=== PATIENT | female | born 1985 | race American Indian/Alaskan Native ===

== ENCOUNTER 2017-06-16 17:58 | Emergency (ER) | payer SELFPAY ==
--- NOTE | 2017-06-16 18:26 | Emergency Department Report ---
Stated Complaint: 7.5 WKS PREG, SPOTTING, HEADACHE, CRAMPING, CP Time Seen by Provider: 06/16/17 18:23 - HPI History of Present Illness: PT states she is 7.5 weeks . PT states she is cramping and spotting, started last night. PT has not been to [facility] for this - ROS Review of Systems: +nausea - vomiting + spotting - Exam Physical Exam: PT looks well, non toxic abd soft R pelvic ttp MSE screening note: Focused history and physical exam performed. Due to findings the following was ordered: labs, us ED Disposition for MSE Condition: Stable
[2017-06-16 18:56] LABS: Basophils % (Auto) 0.5 % (0.0-1.8); Eosinophils % (Auto) 0.9 % (0.0-4.3); Hematocrit 36.2 % (30.3-42.9); Hemoglobin 12.2 gm/dl (10.1-14.3); Mean Corpuscular HGB Conc 34 % (30-34); Mean Corpuscular Hemoglobin 31 pg (28-32); Mean Corpuscular Volume 91 fl (79-97); Platelet Count 241 K/mm3 (140-440); Red Blood Count 3.98 M/mm3 (3.65-5.03); Red Cell Distribution Width 12.7 % (13.2-15.2)
[2017-06-16 19:27] LABS: Alanine Aminotransferase 13 units/L (7-56); Albumin 4.2 g/dL (3.9-5); Albumin/Globulin Ratio 1.7 %; Alkaline Phosphatase 41 units/L (35-129); Anion Gap 17 mmol/L; Blood Urea Nitrogen 5 mg/dL (7-17); Carbon Dioxide 25 mmol/L (22-30); Chloride 99.6 mmol/L (98-107); Glucose 75 mg/dL (65-100); Potassium 4.5 mmol/L (3.6-5.0); Sodium 137 mmol/L (137-145); Total Protein 6.7 g/dL (6.3-8.2)
--- NOTE | 2017-06-16 22:11 | Ultrasound Report ---
FINAL REPORT PROCEDURE: US OB \T\lt; = 14 WEEKS FETUS TECHNIQUE: Real-time transabdominal sonography of the uterus, placenta, amniotic fluid, adnexa, and fetus was performed with image documentation. Measurements were obtained to determine age/size. M-mode Doppler was used to document heartbeat. CPT 02438 HISTORY: , pain and bleeding COMPARISON: No prior studies are available for comparison. FINDINGS: CRL: 17.6 mm, which corresponds to a gestational age of: 8 weeks, 2 days. Yolk Sac: Normal. Embryonic Cardiac Activity: 166 beats per minute Gestational Sac: Normal. Amniotic fluid: Normal. Cervix: Normal. Right Ovary: 3.7 x 3.0 x 3.2 centimeters Left Ovary: 3.3 x 2.3 by 4.2 centimeters Estimated delivery date: Normal. Uterus and adnexa: 01/24/2018 IMPRESSION: Single live intrauterine gestation at approximately 8 weeks and 2 days. EDC by US 01/24/2018
--- NOTE | 2017-06-16 22:12 | Ultrasound Report ---
FINAL REPORT PROCEDURE: US OB TRANSVAGINAL TECHNIQUE: Real-time transvaginal sonography of the uterus, placenta, amniotic fluid, adnexa, and fetus was performed with image documentation. Measurements were obtained to determine age/size. M-mode Doppler was used to document heartbeat. CPT 31119 HISTORY: , pain and bleeding COMPARISON: No prior studies are available for comparison. FINDINGS: CRL: 17.6 mm, which corresponds to a gestational age of: 8 weeks, 2 days. Yolk Sac: Normal. Embryonic Cardiac Activity: 166 beats per minute Gestational Sac: Normal. Amniotic fluid: Normal. Cervix: Normal. Right Ovary: 3.7 x 3.0 x 3.2 centimeters Left Ovary: 3.3 x 2.3 by 4.2 centimeters Estimated delivery date: 01/24/2018. Uterus and adnexa: Normal IMPRESSION: 1. Single living intrauterine gestation at approximately 8 weeks and 2 days 2. EDC by US 01/24/2018.
[2017-06-17 01:06] VITALS: BP 124/77
== END 2017-06-17 01:39 | disposition left against medical advice (07) ==
LOC: ED 17:58
DX: O20.9 Hemorrhage in early pregnancy, unspecified (principal); Z3A.01 Less than 8 weeks gestation of pregnancy; Z53.21 Procedure and treatment not carried out due to patient leaving prior to being seen by health care provider
CPT/HCPCS: 36415; 76801; 76817; 80053; 84702; 85025; 86900; 86901

== ENCOUNTER 2017-11-25 05:23 | Inpatient (IN) | payer MEDICAID ==
[2017-11-25] MEDS ORDERED: LACTATED RINGERS 500 ML IV ONE (05:28)
[2017-11-25] MEDS ORDERED: LACTATED RINGERS 1,000 ML IV ONE (06:07)
[2017-11-25 06:26] LABS: Bilirubin,Urine NEG (Negative); Blood,Urine NEG (Negative); Color,Urine Straw (Yellow); Mucus,Urine FEW /HPF; Protein,Urine <15 mg/dL mg/dL (Negative); RBC,Urine < 1.0 /HPF (0.0-6.0); Urobilinogen,Urine < 2.0 mg/dL (<2.0)
[2017-11-25] MEDS ORDERED: MAGNESIUM SULFATE 4GM/100ML 4 GM/100 ML BAG IV NR (07:30)
[2017-11-25 07:44] LABS: Hematocrit 37.6 % (30.3-42.9); Hemoglobin 12.7 gm/dl (10.1-14.3); Mean Corpuscular HGB Conc 34 % (30-34); Mean Corpuscular Hemoglobin 31 pg (28-32); Mean Corpuscular Volume 93 fl (79-97); Platelet Count 256 K/mm3 (140-440); Red Blood Count 4.07 M/mm3 (3.65-5.03); Red Cell Distribution Width 13.6 % (13.2-15.2)
[2017-11-25] MEDS ORDERED: MYLICON PO PRN (08:10)
[2017-11-25] MEDS ORDERED: ZOFRAN IV PRN (08:10)
--- NOTE | 2017-11-25 08:18 | History and Physical Report ---
History of Present Illness Date of examination: 11/25/17 Date of admission: 11/25/17 05:28 Chief complaint: Labor History of present illness: Pt is a 32 yo BF EDC 01/27/18; EGA 31 0/7 weeks presents to [facility] L&D complaining of RUC's q 3-4 mins. She received care at [facility] since 16 weeks and course has been unremarkable. records are available. Past History Past Medical History: no pertinent history Past Surgical History: no surgical history Family/Genetic History: hypertension Social history: no significant social history, single - Obstetrical History Expected Date of Delivery: 01/27/18 Actual Gestation: 31 Week(s) 0 Day(s) : 2 Medications and Allergies Allergies Allergy/AdvReac Type Severity Reaction Status Date / Time amoxicillin Allergy Hives Verified 11/25/17 07:53 Penicillins Allergy Hives Verified 11/25/17 07:52 Home Medications Medication Instructions Recorded Confirmed Last Taken Type No Known Home Medications [No 06/16/17 06/16/17 Unknown History Reported Home Medications] Active Meds: Active Medications Acetaminophen (Tylenol) 650 mg PO Q4H PRN PRN Reason: Pain MILD(1-3)/Fever >100.5/CROWELL Betamethasone Acet/Betameth SodPhos (Celestone Soluspan) 12 mg IM Q24HR LUTHER Stop: 11/26/17 10:01 Magnesium Sulfate (Magnesium Sulfate 4gm/100ml) 4 gm in 100 mls @ 300 mls/hr IV ONCE NR Stop: 11/25/17 10:00 Last Admin: 11/25/17 07:55 Dose: 300 mls/hr Magnesium Sulfate (Magnesium Sulfate 40gm/1000ml) 40 gm in 1,000 mls @ 25 mls/ hr IV DIRECT LUTHER Clindamycin HCl (Cleocin 900 Mg/50 Ml) 900 mg in 50 mls @ 100 mls/hr IV Q8HR LUTHER; Protocol - Vital Signs Vital signs: Vital Signs Temp Pulse BP 98.6 F 78 120/75 11/25/17 07:00 11/25/17 07:00 11/25/17 07:00 Temp Pulse Resp BP Pulse Ox 98.6 F 78 120/75 11/25/17 07:00 11/25/17 07:00 11/25/17 07:00 - Physical Exam Breasts: Positive: deferred Cardiovascular: Regular rate Lungs: Positive: Clear to auscultation Abdomen: Positive: normal appearance, soft Genitourinary (Female): Positive: normal external genitalia Uterus: Positive: enlarged Extremities: Positive: normal - Obstetrical FHR: category 1 Uterine Contraction Monitor Mode: External Cervical Dilatation: 3.5 (per nurse) Cervical Effacement Percentage: 80 (per nurse) station: -3 Uterine Contraction Pattern: Regular Uterine Tone Measurement Phase: Contraction Uterine Contraction Intensity: Moderate Results Result Diagrams: 11/25/17 07:00 Abnormal lab results 11/25/17 Range/Units 07:00 WBC 11.2 H (4.5-11.0) K/mm3 All other labs normal. Ultrasound: report reviewed Assessment and Plan - Patient Problems (1) 31 weeks gestation of Onset Date: 11/25/17 Current Visit: Yes Status: Acute Plan to address problem: A: IUP @ 31 0/7 weeks Labor P: Admit to L&D for IV hydration, IV tocolysis, Steroids and Antibiotics Ob u/s for growth, position, BALWINDER and EFW. Obtain an APA consultation (2) contractions Onset Date: 11/25/17 Current Visit: Yes Status: Acute (3) uterine contractions in third trimester, antepartum Onset Date: 11/25/17 Current Visit: Yes Status: Acute
[2017-11-25] MEDS: MAGNESIUM SULFATE 40GM/1000ML 40 GM/1,000 ML BAG IV SCH (08:46)
[2017-11-25] MEDS ORDERED: COLACE PO PRN (09:00)
[2017-11-25] MEDS ORDERED: SENOKOT S PO PRN (09:00)
[2017-11-25] MEDS: CLEOCIN 900 MG/50 mL 900 MG/50 ML BAG IV SCH ×2 (09:07→17:14)
[2017-11-25] MEDS: CELESTONE SOLUSPAN IM SCH (10:08)
[2017-11-25] MEDS: PRENATAL VITAMIN PO SCH (10:15)
--- NOTE | 2017-11-25 10:58 | Ultrasound Report ---
BIOPHYSICAL PROFILE: labor. 2 - breathing movements 2 - movements 2 - posture and tone 2 - Qualitative amniotic fluid volume 8 - TOTAL SCORE OF POSSIBLE 8 Heart Rate (bpm) 141 Estimated age 31 weeks zero days.
--- NOTE | 2017-11-25 11:10 | Ultrasound Report ---
COMPLETE OB ULTRASOUND: labor. Gestation: Mckenna Position: Cephalic BALWINDER = 13.7 cm Placenta: Anterior Placental Grade: 2 Heart Rate: 142 BPM Cervical length: 2.5 cm (Normal > 3 cm) NEUROANATOMY VISUALIZED: Cisterna Magnum Cerebellum Lateral Ventricle ANATOMY VISUALIZED: Stomach Kidneys Bladder Diaphragm 4 Chamber Heart Heart 3 Vessel Cord SPINE VISUALIZED: Longitudinal Transverse The following are not demonstrated due to maternal body habitus or lie: Choroid plexus, cord insertion, AP supine BPD: 7.8 cm = 31 w 2 d HC: 28.5 cm = 31 w 2 d AC: 27.4 cm = 31 w 2 d FL: 5.5 cm = 28 w 6 d HC/AC Ratio: 1.04 Cephalic Index: 81.2 Estimated Weight: 1608 grams Clinical age = 31 w 0 d EDC: 01/27/18 US Gest. Age = 30 w 5 d EDC: 01/29/18
--- NOTE | 2017-11-25 13:17 | Consultation ---
History of Present Illness Consult date: 11/25/17 Reason for consult: contractions History of present illness: Date of Consult: Saturday, November 25, 2017 Patient Name: CECI LOPEZ Date of : 89 Consulting Physician: Ashlyn Garcia M.D. Admitting Physicians: Dr. Ahmet Anton. Admission Diagnosis: Patient is a 32 year old Para 1001 who presents at 31 weeks with complaint of contractions since midnight last night. PAST OBSTETRICAL HISTORY: 2016: at term, BW:6 pounds 9 oz. labor s/p previous admission with betamethasone x 2 and magnesium administration. Patient describes contractions over the last 2 days. She denies vaginal bleeding or fluid leakage per vagina. SVE: 3 4 cm. Patient describes some improvement in symptoms from admission. Past History Past Medical History: no pertinent history Past Surgical History: no surgical history Family/Genetic History: hypertension - Obstetrical History : 2 Medications and Allergies Allergies Allergy/AdvReac Type Severity Reaction Status Date / Time amoxicillin Allergy Hives Verified 11/25/17 07:53 Penicillins Allergy Hives Verified 11/25/17 07:52 Home Medications Medication Instructions Recorded Confirmed Last Taken Type No Known Home Medications [No 06/16/17 06/16/17 Unknown History Reported Home Medications] Active Meds: Active Medications Acetaminophen (Tylenol) 650 mg PO Q4H PRN PRN Reason: Pain MILD(1-3)/Fever >100.5/CROWELL Betamethasone Acet/Betameth SodPhos (Celestone Soluspan) 12 mg IM Q24HR LUTHER Stop: 11/26/17 10:01 Last Admin: 11/25/17 10:08 Dose: 12 mg Docusate Sodium (Colace) 100 mg PO Q12H PRN PRN Reason: Constipation Magnesium Sulfate (Magnesium Sulfate 40gm/1000ml) 40 gm in 1,000 mls @ 25 mls/ hr IV DIRECT LUTHER Last Admin: 11/25/17 08:46 Dose: 1 gm/hr, 25 mls/hr Clindamycin HCl (Cleocin 900 Mg/50 Ml) 900 mg in 50 mls @ 100 mls/hr IV Q8H LUTHER ; Protocol Last Admin: 11/25/17 09:07 Dose: 100 mls/hr Lactated Ringer's (Lactated Ringers) 1,000 mls @ 125 mls/hr IV DIRECT LUTHER Magnesium Hydroxide (Milk Of Magnesia) 30 ml PO QHS PRN PRN Reason: Laxative Effect Multivitamins/Iron/Calcium ( Vitamin) 1 each PO QDAY LUTHER Last Admin: 11/25/17 10:15 Dose: 1 each Ondansetron HCl (Zofran) 4 mg IV Q6H PRN PRN Reason: Nausea And Vomiting Senna/Docusate Sodium (Senokot S) 2 tab PO Q12H PRN PRN Reason: Laxative Effect Simethicone (Mylicon) 80 mg PO Q6H PRN PRN Reason: Gas pain - Vital Signs Vital signs: Vital Signs Temp Pulse BP 98.6 F 78 120/75 11/25/17 07:00 11/25/17 07:00 11/25/17 07:00 Temp Pulse Resp BP Pulse Ox 98.6 F 78 120/75 11/25/17 07:00 11/25/17 07:00 11/25/17 07:00 Results Result Diagrams: 11/25/17 07:00 Abnormal lab results 11/25/17 Range/Units 07:00 WBC 11.2 H (4.5-11.0) K/mm3 All other labs normal. Assessment and Plan ASSESSMENT: IUP at 31 weeks. labor s/p previous admission with betamethasone x 2 and magnesium administration Rule out labor. FHR tracing category 1 Given the current findings, the likelihood for imminent premature delivery appears UNCLEAR . RECOMMENDATIONS: 1. I am in agreement with admission and the administration of corticosteroids to enhance lung maturity. 2. As always, a complete check for urinary and cervico-vaginal infection should be pursued during this admission. Accordingly we would obtain and follow-up the results of a wet prep for bacterial vaginosis and a urine culture to rule out subclinical UTI and asymptomatic bacteriuria. 3. As always, I would abandon all attempts of tocolysis in the presence of and SVE > 5cm, SROM, unexplained vaginal bleeding or a non- reassuring heart rate pattern. 4. If discharged, this patient will require intermittent sonographic cervical follow-up as dictated by symptoms or until 34 weeks gestation. 5. We will be happy to follow this patient with you. Thank you for allowing us to participate in the care of this patient. We look forward to the opportunity to assist in her continued management. If you have any questions, we may be reached at [phone]. Ashlyn Garcia M.D.
[2017-11-25] MEDS: TYLENOL PO PRN ×2 (14:58→20:24)
[2017-11-25] MEDS: LACTATED RINGERS 1,000 ML IV SCH (16:33)
[2017-11-25] MEDS ORDERED: MILK OF MAGNESIA PO PRN (22:00)
[2017-11-25] MEDS ORDERED: fentaNYL-BUPIV 2 MCG/ML-0.125% 200 MCG/100 ML BAG EPIDURAL SCH (23:45)
[2017-11-25] MEDS ORDERED: ePHEDrine SULFATE IV PRN (23:55)
[2017-11-25] MEDS ORDERED: NARCAN 2 MG/2 ML IV PRN (23:55)
[2017-11-26] MEDS: TYLENOL PO PRN (00:59)
[2017-11-26] MEDS: CLEOCIN 900 MG/50 mL 900 MG/50 ML BAG IV SCH ×2 (01:02→17:35)
[2017-11-26] MEDS: MAGNESIUM SULFATE 40GM/1000ML 40 GM/1,000 ML BAG IV SCH (04:17)
--- NOTE | 2017-11-26 08:34 | Progress Note ---
Assessment and Plan - Patient Problems (1) 31 weeks gestation of Onset Date: 11/25/17 Current Visit: Yes Status: Acute Plan to address problem: A: IUP @ 31 1/7 weeks Contractions - currently resolved P: Continue present management Appreciate APA consultation Will D/C Magnesium sulfate and start Procardia 10mg Q8 Anticipate discharge in 24hrs if remains stable (2) contractions Onset Date: 11/25/17 Current Visit: Yes Status: Acute (3) uterine contractions in third trimester, antepartum Onset Date: 11/25/17 Current Visit: Yes Status: Acute Subjective - Subjective Date of service: 11/26/17 Principal diagnosis: IUP @ 31 1/7 weeks; PTL Interval history: Pt is a 32 yo BF EDC 01/27/18; EGA 31 1/7 weeks presented to [facility] L&D complaining of RUC's q 3-4 mins. She received IV hydration, IV Magnesium sulfate and IM Steroids, and currently her contractions have stopped. Patient reports: movement normal, no new complaints, no loss of fluid, no vaginal bleeding, no contractions Objective - Vital Signs Vital Signs: Vital Signs - 12hr 11/26/17 02:00 Pulse Rate 80 Respiratory 12 Rate Blood Pressure 106/62 [Left] - Exam Breasts: deferred Cardiovascular: Regular rate Lungs: Clear to auscultation Abdomen: Present: normal appearance Uterus: Present: normal FHR: category 1 Uterine Contraction Monitor Mode: External Cervical Dilatation: 3 Cervical Effacement Percentage: 50 Uterine Contraction Pattern: Absent - Labs Labs: Abnormal Labs 11/25/17 07:00 WBC 11.2 H Laboratory Results - last 24 hr 11/25/17 07:00 RPR Nonreactive - Results US- obstetric: report reviewed (Mckenna, Cephalic, BALWINDER 13.7, EFW 1608gms, Cx length 2.5cm)
--- NOTE | 2017-11-26 09:07 | Consultation ---
History of Present Illness Reason for consult: other (Patient is a 32 year old Para 1001 who presents at 31 weeks with reported complaint of contractions upon admission. Patient reported NO contractions during consultation . Currently on MgSO4 2 gm /hr. S/ P BMZ for FLM . Patient denied VD, ABD pain , and regular ctx. Reported AFM) Past History Past Medical History: no pertinent history Past Surgical History: no surgical history Family/Genetic History: hypertension - Obstetrical History : 2 Medications and Allergies Allergies Allergy/AdvReac Type Severity Reaction Status Date / Time amoxicillin Allergy Hives Verified 11/25/17 07:53 Penicillins Allergy Hives Verified 11/25/17 07:52 Home Medications Medication Instructions Recorded Confirmed Last Taken Type Pnv,Calcium 72/Iron/Folic Acid 1 tab PO DAILY 11/25/17 11/25/17 11/23/17 09:00 History [ Plus Tablet] Active Meds: Active Medications Acetaminophen (Tylenol) 650 mg PO Q4H PRN PRN Reason: Pain MILD(1-3)/Fever >100.5/CROWELL Last Admin: 11/26/17 00:59 Dose: 650 mg Betamethasone Acet/Betameth SodPhos (Celestone Soluspan) 12 mg IM Q24HR LUTHER Stop: 11/26/17 10:01 Last Admin: 11/25/17 10:08 Dose: 12 mg Diphenhydramine HCl (Benadryl) 25 mg PO Q8H PRN PRN Reason: Itching Docusate Sodium (Colace) 100 mg PO Q12H PRN PRN Reason: Constipation Ephedrine Sulfate (Ephedrine Sulfate) 10 mg IV Q2M PRN PRN Reason: Hypotension Magnesium Sulfate (Magnesium Sulfate 40gm/1000ml) 40 gm in 1,000 mls @ 25 mls/ hr IV DIRECT LUTHER Last Admin: 11/26/17 04:17 Dose: 1 gm/hr, 25 mls/hr Clindamycin HCl (Cleocin 900 Mg/50 Ml) 900 mg in 50 mls @ 100 mls/hr IV Q8H LUTHER ; Protocol Last Admin: 11/26/17 01:02 Dose: 100 mls/hr Lactated Ringer's (Lactated Ringers) 1,000 mls @ 125 mls/hr IV DIRECT LUTHER Last Admin: 11/25/17 16:33 Dose: 125 mls/hr Fentanyl/Bupivacaine/Sodium Chlor (Fentanyl-Bupiv 2 Mcg/Ml-0.125%) 200 mcg in 100 mls @ 12 mls/hr EPIDURAL TITR LUTHER; Protocol Magnesium Hydroxide (Milk Of Magnesia) 30 ml PO QHS PRN PRN Reason: Laxative Effect Multivitamins/Iron/Calcium ( Vitamin) 1 each PO QDAY LUTHER Last Admin: 11/25/17 10:15 Dose: 1 each Naloxone HCl (Narcan 2 Mg/2 Ml) 0.2 mg IV Q5M PRN PRN Reason: Respiratory sedation Ondansetron HCl (Zofran) 4 mg IV Q6H PRN PRN Reason: Nausea And Vomiting Senna/Docusate Sodium (Senokot S) 2 tab PO Q12H PRN PRN Reason: Laxative Effect Simethicone (Mylicon) 80 mg PO Q6H PRN PRN Reason: Gas pain Review of Systems Constitutional: no fever, no chills Eyes: deferred Ears, nose, mouth and throat: deferred Cardiovascular: no shortness of breath Respiratory: no shortness of breath Breasts: deferred Gastrointestinal: no abdominal pain Genitourinary: contractions (Q 4 hrs ), no vaginal bleeding, no vaginal discharge, no leakage of fluid, no pelvic pain Integumentary: no rash Neurological: no headaches Allergic/Immunologic: no wheezing - Vital Signs Vital signs: Vital Signs Temp Pulse BP 98.6 F 78 120/75 11/25/17 07:00 11/25/17 07:00 11/25/17 07:00 Temp Pulse Resp BP Pulse Ox 96.0 F L 80 12 106/62 99 11/25/17 19:52 11/26/17 02:00 11/26/17 02:00 11/26/17 02:00 11/25/17 19:52 - Physical Exam Breasts: Positive: deferred Cardiovascular: Regular rate Lungs: Positive: Normal air movement Abdomen: Negative: tenderness, guarding Uterus: Negative: tender Extremities: Negative: edema Deep Tendon Reflex Grade: Normal +2 - Obstetrical FHR: category 1 Uterine Contraction Monitor Mode: External Cervical Dilatation: 3 (During consult by Dr. Abdulaziz Anton ) Uterine Contraction Pattern: Irregular Results Result Diagrams: 11/25/17 07:00 All other labs normal. Ultrasound: report reviewed (See [facility] for full report 11/25/17 cervical length of 2.5 cm BPP 04/28 ) Assessment and Plan A: ASSESSMENT: IUP at 31 weeks. labor s/p previous admission with betamethasone x 2 Magnesium in progress @ 2 gm /hr Cervical shortening at 2.5 cm Advanced dilation of 3 cm ( stable SVE assessment ) FHR tracing category 1 . RECOMMENDATIONS: 1. D/C MgSO4 2. Document complete check for urinary and cervico-vaginal infection should be pursued during this admission. Accordingly we would obtain and follow-up the results of a wet prep for bacterial vaginosis and a urine culture to rule out subclinical UTI and asymptomatic bacteriuria. 3. S/P MgSo4 d/c Monitor for ctx and reassess SVE for discharge disposition 4. If discharged, this patient will require intermittent sonographic cervical follow-up as dictated by symptoms or until 34 weeks gestation. 5. If discharged - Pocardia 10 mg PO Q 8 hrs 6. We will be happy to follow this patient with you.
[2017-11-26] MEDS: CELESTONE SOLUSPAN IM SCH (10:11)
[2017-11-26] MEDS: BENADRYL PO PRN ×2 (10:11→17:45)
[2017-11-26] MEDS: PRENATAL VITAMIN PO SCH (10:11)
[2017-11-26] MEDS: LACTATED RINGERS 1,000 ML IV SCH (14:25)
[2017-11-26] MEDS: PROCARDIA*For Tocolysis only PO SCH ×2 (14:29→23:40)
[2017-11-26] MEDS ORDERED: TUCKS PAD TP PRN (17:14)
[2017-11-26] MEDS ORDERED: NORMOSOL-R PH 7.4 1,000 ML IV ONE (22:13)
[2017-11-26] MEDS ORDERED: AMBIEN PO PRN (23:55)
[2017-11-27] MEDS: CLEOCIN 900 MG/50 mL 900 MG/50 ML BAG IV SCH ×2 (02:33→09:53)
[2017-11-27] MEDS ORDERED: NORMOSOL-R PH 7.4 1,000 ML IV ONE (06:01)
[2017-11-27] MEDS: BENADRYL PO PRN (06:03)
[2017-11-27] MEDS: PROCARDIA*For Tocolysis only PO SCH (07:07)
[2017-11-27] MEDS: PRENATAL VITAMIN PO SCH (09:53)
--- NOTE | 2017-11-27 10:44 | Progress Note ---
Assessment and Plan - Patient Problems (1) 31 weeks gestation of Onset Date: 11/25/17 Current Visit: Yes Status: Acute Plan to address problem: A: IUP @ 31 2/7 weeks Contractions - resolved P: May go home on Procardia 10mg Q8 (2) contractions Onset Date: 11/25/17 Current Visit: Yes Status: Resolved (3) uterine contractions in third trimester, antepartum Onset Date: 11/25/17 Current Visit: Yes Status: Resolved Subjective - Subjective Date of service: 11/27/17 Principal diagnosis: IUP @ 31 2/7 weeks; PTL Interval history: Pt is a 32 yo BF EDC 01/27/18; EGA 31 2/7 weeks presented to [facility] L&D complaining of RUC's q 3-4 mins. She received IV hydration, IV Magnesium sulfate and IM Steroids, and currently her contractions have stopped on Procardia 10mg Q8h. She denies vaginal bleeding or ROM. +FM Patient reports: movement normal, no new complaints, no loss of fluid, no vaginal bleeding, no contractions Objective - Vital Signs Vital Signs: Vital Signs - 12hr 11/27/17 07:19 Temperature 97.7 F Pulse Rate 84 Respiratory 18 Rate Blood Pressure 119/75 [Left] O2 Sat by Pulse 99 Oximetry - Exam Breasts: deferred Cardiovascular: Regular rate Lungs: Clear to auscultation Abdomen: Present: normal appearance, soft FHR: category 1 Uterine Contraction Pattern: Absent - Labs Labs: Abnormal Labs 11/25/17 07:00 WBC 11.2 H
--- NOTE | 2017-11-27 10:45 | Discharge Summary ---
Providers - Providers Date of Admission: 11/25/17 08:10 Date of discharge: 11/27/17 Attending physician: SUNDAY GALINDO 11/25/17 08:14 Consult to Physician [CONS] Urgent Consulting Provider: KAILYN PERES Reason For Exam: labor Place consult to:: Office Notified:: Office Phone number called:: [phone] Was contact made?: Yes If yes, spoke with:: Vianey Time called:: 08:16 Primary care physician: SUNDAY GALINDO Hospitalization Reason for admission: IUP - , observation, labor Other procedures: none complications: none Discharge diagnosis: other (IUP @ 31 2/7 weeks; contractions - resolved ) Hospital course: Pt is a 32 yo BF EDC 01/27/18; EGA 31 2/7 weeks who presented to [facility] L&D complaining of RUC's q 3-4 mins. She received IV hydration, IV Magnesium sulfate and IM Steroids, and currently her contractions have stopped on Procardia 10mg Q8h. She denied vaginal bleeding or ROM. +FM Condition at discharge: Good Disposition: DC-01 TO HOME OR SELFCARE - Discharge Diagnoses (1) 31 weeks gestation of Status: Acute (2) contractions Status: Resolved (3) uterine contractions in third trimester, antepartum Status: Resolved Plan - Discharge Medications Prescriptions: diphenhydrAMINE [Benadryl CAP] 25 mg PO Q8H PRN #30 capsule PRN Reason: Itching NIFEdipine [Procardia] 10 mg PO Q8HR #90 capsule - Provider Discharge Summary Activity: routine, no sex for 6 weeks, no heavy lifting 4 weeks, no strenuous exercise Diet: routine Instructions: routine Additional instructions: [] Smoking cessation referral if applicable(refer to patient education folder for contact #) [] Refer to [facility]'s [facility] Booklet Call your doctor immediately for: * Fever > 100.5 * Heavy vaginal bleeding ( >1 pad per hour) * Severe persistent headache * Shortness of breath * Reddened, hot, painful area to leg or breast * Drainage or odor from incision. * Keep incision clean and dry at all times and follow doctor's instructions regarding bathing/showering - Follow up plan Follow up: SUNDAY GALINDO MD [Primary Care Provider] - 7 Days GABRIELLA LOVE MD [Staff Physician] - 7 Days Forms: Discharge Signature Page
[2017-11-28 21:10] VITALS: BP 119/82
== END 2017-11-27 11:13 | disposition home or self-care (01) | DRG 778 ==
LOC: TRG 05:23 → LD 05:28 → TRG 05:28 → OBSVTOIN 08:10 → LD 08:10
PROVIDERS: ADMIT Obstetrics & Gynecology; ATTEND Obstetrics & Gynecology
DX: O60.03 Preterm labor without delivery, third trimester (principal); Z3A.31 31 weeks gestation of pregnancy; Z88.1 Allergy status to other antibiotic agents; Z88.0 Allergy status to penicillin; Z82.49 Family history of ischemic heart disease and other diseases of the circulatory system
CPT/HCPCS: 36415; 76805; 76819; 81001; 85027; 86592; 86850; 86900; 86901; 87116; 87210; J0702; J3475; J7120

== ENCOUNTER 2017-11-27 19:47 | Inpatient (IN) | payer MEDICAID ==
[2017-11-27] MEDS ORDERED: LACTATED RINGERS 500 ML IV ONE (19:54)
[2017-11-27] MEDS ORDERED: LACTATED RINGERS 1,000 ML IV ONE (19:57)
[2017-11-27] MEDS ORDERED: NORMOSOL-R PH 7.4 1,000 ML IV ONE (20:04)
[2017-11-27] MEDS: BRETHINE SUB-Q SCH ×2 (20:25→20:55)
[2017-11-27 20:39] LABS: Bacteria,Urine 1+ /HPF (Negative); Bilirubin,Urine NEG (Negative); Blood,Urine SM (Negative); Color,Urine Colorless (Yellow); Mucus,Urine FEW /HPF; Protein,Urine <15 mg/dL mg/dL (Negative); Urobilinogen,Urine < 2.0 mg/dL (<2.0); WBC,Urine < 1.0 /HPF (0.0-6.0)
--- NOTE | 2017-11-27 20:46 | History and Physical Report ---
History of Present Illness Date of examination: 11/27/17 Chief complaint: Contractions History of present illness: Pt is a 32 yo BF EDC 01/27/18; EGA 31 2/7 weeks who represented to [facility] L&D complaining of RUC's q 3-4 mins. She was discharged to home this morning after being admitted for contractions where she received IV hydration, IV Magnesium sulfate and IM Steroids, and sent home on Procardia 10mg Q8h. She denied vaginal bleeding or ROM. +FM She received care at [facility] since 16 weeks and records are available. Past History Past Medical History: no pertinent history Past Surgical History: no surgical history Social history: no significant social history, single - Obstetrical History Expected Date of Delivery: 01/27/18 Actual Gestation: 31 Week(s) 2 Day(s) : 2 Medications and Allergies Allergies Allergy/AdvReac Type Severity Reaction Status Date / Time amoxicillin Allergy Hives Verified 11/25/17 07:53 Penicillins Allergy Hives Verified 11/25/17 07:52 Home Medications Medication Instructions Recorded Confirmed Last Taken Type Pnv,Calcium 72/Iron/Folic Acid 1 tab PO DAILY 11/25/17 11/25/17 11/23/17 09:00 History [ Plus Tablet] NIFEdipine [Procardia] 10 mg PO Q8HR #90 capsule 11/27/17 Unknown Rx diphenhydrAMINE [Benadryl CAP] 25 mg PO Q8H PRN #30 capsule 11/27/17 Unknown Rx Active Meds: Active Medications Lactated Ringer's (Lactated Ringers) 1,000 mls @ 999 mls/hr IV BOLUS ONE Stop: 11/27/17 20:57 Terbutaline Sulfate (Brethine) 0.25 mg SUB-Q Q20MIN LUTHER Stop: 11/29/17 20:01 Last Admin: 11/27/17 20:25 Dose: 0.25 mg Review of Systems All systems: negative - Vital Signs Vital signs: Vital Signs Pulse Pulse Ox 90 97 11/27/17 19:59 11/27/17 19:59 Temp Pulse Resp BP Pulse Ox 90 118/72 98 11/27/17 20:49 11/27/17 20:35 11/27/17 20:49 - Physical Exam Breasts: Positive: deferred Cardiovascular: Regular rate Lungs: Positive: Clear to auscultation Abdomen: Positive: normal appearance Genitourinary (Female): Positive: normal external genitalia Uterus: Positive: enlarged Extremities: Positive: normal - Obstetrical FHR: category 1 Uterine Contraction Monitor Mode: External Cervical Dilatation: 4 (per nurse) Uterine Contraction Pattern: Regular Uterine Tone Measurement Phase: Contraction Uterine Contraction Intensity: Moderate Results All other labs normal. Assessment and Plan - Patient Problems (1) 31 weeks gestation of Onset Date: 11/25/17 Current Visit: No Status: Acute Plan to address problem: A: IUP @ 31 2/7 weeks contractions - readmitted after < 12 hours P: Admit to L&D for IV hydration, IV tocolysis, and IV Antibiotics (2) contractions Onset Date: 11/25/17 Current Visit: No Status: Resolved (3) uterine contractions in third trimester, antepartum Onset Date: 11/25/17 Current Visit: No Status: Resolved
[2017-11-27] MEDS ORDERED: ZOFRAN IV PRN (20:49)
[2017-11-27] MEDS ORDERED: COLACE PO PRN (20:49)
[2017-11-27] MEDS ORDERED: AMBIEN PO PRN (20:49)
[2017-11-27] MEDS ORDERED: MYLICON PO PRN (20:49)
[2017-11-27] MEDS ORDERED: MILK OF MAGNESIA PO PRN (20:49)
[2017-11-27] MEDS ORDERED: MAGNESIUM SULFATE 4GM/100ML 4 GM/100 ML BAG IV ONE (22:00)
[2017-11-27] MEDS: NORMOSOL-R PH 7.4 1,000 ML IV SCH (22:41)
[2017-11-27] MEDS: CLEOCIN 900 MG/50 mL 900 MG/50 ML BAG IV SCH (23:05)
[2017-11-27] MEDS: MAGNESIUM SULFATE 40GM/1000ML 40 GM/1,000 ML BAG IV SCH (23:08)
[2017-11-27] MEDS: TYLENOL PO PRN (23:12)
[2017-11-28 04:57] LABS: Hematocrit 33.8 % (30.3-42.9); Hemoglobin 11.3 gm/dl (10.1-14.3); Mean Corpuscular HGB Conc 33 % (30-34); Mean Corpuscular Hemoglobin 31 pg (28-32); Mean Corpuscular Volume 93 fl (79-97); Platelet Count 283 K/mm3 (140-440); Red Blood Count 3.62 M/mm3 (3.65-5.03)
[2017-11-28] MEDS: CLEOCIN 900 MG/50 mL 900 MG/50 ML BAG IV SCH ×2 (06:21→14:21)
[2017-11-28] MEDS: PRENATAL VITAMIN PO SCH (09:59)
--- NOTE | 2017-11-28 09:59 | Progress Note ---
Assessment and Plan - Patient Problems (1) 31 weeks gestation of Onset Date: 11/25/17 Current Visit: No Status: Acute Plan to address problem: A: IUP @ 31 2/7 weeks contractions - resolved on Magnesium sulfate 2gm/hr P: Continue with IV hydration, IV tocolysis, and IV Antibiotics Obtain [facility] consultation. (2) contractions Onset Date: 11/25/17 Current Visit: No Status: Resolved (3) uterine contractions in third trimester, antepartum Onset Date: 11/25/17 Current Visit: No Status: Resolved Subjective - Subjective Date of service: 11/28/17 Principal diagnosis: IUP @ 31 3/7 weeks; contractions Interval history: Pt is a 32 yo BF EDC 01/27/18; EGA 31 3/7 weeks who represented to [facility] L&D complaining of RUC's q 3-4 mins. She is currently receiving IV hydration, IV Magnesium sulfate 2gm/hr and contractions have stopped. Patient reports: movement normal, no new complaints, no loss of fluid, no vaginal bleeding, no contractions Objective - Vital Signs Vital Signs: Vital Signs - 12hr 11/27/17 11/27/17 11/27/17 22:41 22:46 22:51 Temperature 97.6 F Pulse Rate 93 H 95 H 99 H Respiratory 20 Rate Blood Pressure 100/54 Blood Pressure [Right] O2 Sat by Pulse 97 97 96 Oximetry 11/27/17 11/27/17 11/27/17 22:56 23:01 23:02 Temperature Pulse Rate 94 H 101 H 105 H Respiratory Rate Blood Pressure 106/55 125/55 Blood Pressure [Right] O2 Sat by Pulse 96 95 Oximetry 11/27/17 11/27/17 11/27/17 23:06 23:09 23:11 Temperature Pulse Rate 93 H 102 H 94 H Respiratory Rate Blood Pressure 109/56 100/56 Blood Pressure [Right] O2 Sat by Pulse 96 94 96 Oximetry 11/27/17 11/27/17 11/27/17 23:12 23:16 23:21 Temperature Pulse Rate 104 H 100 H Respiratory 20 Rate Blood Pressure Blood Pressure [Right] O2 Sat by Pulse 96 96 Oximetry 11/27/17 11/27/17 11/27/17 23:26 23:31 23:36 Temperature Pulse Rate 88 83 93 H Respiratory Rate Blood Pressure Blood Pressure [Right] O2 Sat by Pulse 99 98 97 Oximetry 11/27/17 11/27/17 11/27/17 23:41 23:45 23:46 Temperature Pulse Rate 91 H 98 H 92 H Respiratory Rate Blood Pressure Blood Pressure [Right] O2 Sat by Pulse 97 94 94 Oximetry 11/27/17 11/27/17 11/28/17 23:51 23:56 00:01 Temperature Pulse Rate 91 H 93 H 96 H Respiratory Rate Blood Pressure Blood Pressure [Right] O2 Sat by Pulse 95 97 94 Oximetry 11/28/17 11/28/17 11/28/17 00:02 00:06 00:10 Temperature Pulse Rate 97 H 93 H 103 H Respiratory Rate Blood Pressure Blood Pressure [Right] O2 Sat by Pulse 94 97 92 Oximetry 11/28/17 11/28/17 11/28/17 00:11 00:16 00:21 Temperature Pulse Rate 94 H 94 H 95 H Respiratory Rate Blood Pressure Blood Pressure [Right] O2 Sat by Pulse 96 98 95 Oximetry 11/28/17 11/28/17 11/28/17 00:26 00:31 00:34 Temperature Pulse Rate 96 H 97 H 88 Respiratory Rate Blood Pressure Blood Pressure [Right] O2 Sat by Pulse 95 97 94 Oximetry 11/28/17 11/28/17 11/28/17 00:36 00:41 00:46 Temperature Pulse Rate 90 90 89 Respiratory Rate Blood Pressure Blood Pressure [Right] O2 Sat by Pulse 95 96 97 Oximetry 11/28/17 11/28/17 11/28/17 00:48 00:51 00:56 Temperature Pulse Rate 90 91 H 95 H Respiratory Rate Blood Pressure Blood Pressure [Right] O2 Sat by Pulse 93 95 100 Oximetry 11/28/17 11/28/17 11/28/17 01:01 01:06 01:08 Temperature 98.2 F Pulse Rate 87 90 93 H Respiratory 20 Rate Blood Pressure 113/69 Blood Pressure 116/61 [Right] O2 Sat by Pulse 100 100 100 Oximetry 11/28/17 11/28/17 11/28/17 01:11 01:13 01:16 Temperature Pulse Rate 96 H 97 H 103 H Respiratory Rate Blood Pressure 116/69 Blood Pressure [Right] O2 Sat by Pulse 99 96 Oximetry 11/28/17 11/28/17 11/28/17 01:21 01:26 01:27 Temperature Pulse Rate 102 H 108 H 105 H Respiratory Rate Blood Pressure Blood Pressure [Right] O2 Sat by Pulse 95 95 94 Oximetry 11/28/17 11/28/17 11/28/17 01:31 01:36 01:41 Temperature Pulse Rate 103 H 107 H 108 H Respiratory Rate Blood Pressure Blood Pressure [Right] O2 Sat by Pulse 95 95 95 Oximetry 11/28/17 11/28/17 11/28/17 01:46 01:51 01:56 Temperature Pulse Rate 105 H 104 H 104 H Respiratory Rate Blood Pressure Blood Pressure [Right] O2 Sat by Pulse 95 94 94 Oximetry 11/28/17 11/28/17 11/28/17 02:01 02:06 02:11 Temperature Pulse Rate 99 H 103 H 105 H Respiratory Rate Blood Pressure Blood Pressure [Right] O2 Sat by Pulse 94 95 94 Oximetry 11/28/17 11/28/17 11/28/17 02:13 02:16 02:21 Temperature Pulse Rate 100 H 96 H 108 H Respiratory Rate Blood Pressure 98/64 Blood Pressure [Right] O2 Sat by Pulse 94 94 94 Oximetry 11/28/17 11/28/17 11/28/17 02:26 02:31 02:34 Temperature Pulse Rate 105 H 113 H 108 H Respiratory Rate Blood Pressure Blood Pressure [Right] O2 Sat by Pulse 94 94 94 Oximetry 11/28/17 11/28/17 11/28/17 02:36 02:39 02:41 Temperature Pulse Rate 101 H 100 H 111 H Respiratory Rate Blood Pressure Blood Pressure [Right] O2 Sat by Pulse 94 94 94 Oximetry 11/28/17 11/28/17 11/28/17 02:46 02:47 02:51 Temperature Pulse Rate 94 H 100 H 102 H Respiratory Rate Blood Pressure Blood Pressure [Right] O2 Sat by Pulse 95 94 95 Oximetry 11/28/17 11/28/17 11/28/17 02:54 02:56 03:01 Temperature Pulse Rate 99 H 108 H 103 H Respiratory Rate Blood Pressure Blood Pressure [Right] O2 Sat by Pulse 93 95 95 Oximetry 11/28/17 11/28/17 11/28/17 03:03 03:06 03:11 Temperature Pulse Rate 97 H 98 H 99 H Respiratory Rate Blood Pressure Blood Pressure [Right] O2 Sat by Pulse 93 94 94 Oximetry 11/28/17 11/28/17 11/28/17 03:12 03:13 03:16 Temperature Pulse Rate 93 H 87 103 H Respiratory Rate Blood Pressure 124/58 Blood Pressure [Right] O2 Sat by Pulse 92 95 Oximetry 11/28/17 11/28/17 11/28/17 03:21 03:26 03:31 Temperature Pulse Rate 102 H 103 H 106 H Respiratory Rate Blood Pressure Blood Pressure [Right] O2 Sat by Pulse 95 95 95 Oximetry 11/28/17 11/28/17 11/28/17 03:36 03:37 03:41 Temperature Pulse Rate 98 H 100 H 101 H Respiratory Rate Blood Pressure Blood Pressure [Right] O2 Sat by Pulse 95 94 95 Oximetry 11/28/17 11/28/17 11/28/17 03:45 03:46 03:51 Temperature Pulse Rate 101 H 102 H 101 H Respiratory Rate Blood Pressure Blood Pressure [Right] O2 Sat by Pulse 94 95 95 Oximetry 11/28/17 11/28/17 11/28/17 03:52 03:56 04:01 Temperature Pulse Rate 97 H 104 H 104 H Respiratory Rate Blood Pressure Blood Pressure [Right] O2 Sat by Pulse 92 93 94 Oximetry 11/28/17 11/28/17 11/28/17 04:06 04:11 04:13 Temperature Pulse Rate 102 H 102 H 102 H Respiratory Rate Blood Pressure 103/60 Blood Pressure [Right] O2 Sat by Pulse 93 94 Oximetry 11/28/17 11/28/17 11/28/17 04:16 04:21 04:26 Temperature Pulse Rate 99 H 98 H 100 H Respiratory Rate Blood Pressure Blood Pressure [Right] O2 Sat by Pulse 93 93 94 Oximetry 11/28/17 11/28/17 11/28/17 04:31 04:36 04:39 Temperature Pulse Rate 94 H 105 H 89 Respiratory Rate Blood Pressure Blood Pressure [Right] O2 Sat by Pulse 94 94 94 Oximetry 11/28/17 11/28/17 11/28/17 04:41 04:46 04:51 Temperature Pulse Rate 100 H 97 H 101 H Respiratory Rate Blood Pressure Blood Pressure [Right] O2 Sat by Pulse 94 92 94 Oximetry 11/28/17 11/28/17 11/28/17 04:56 05:01 05:06 Temperature Pulse Rate 94 H 87 88 Respiratory Rate Blood Pressure Blood Pressure [Right] O2 Sat by Pulse 92 92 93 Oximetry 11/28/17 11/28/17 11/28/17 05:11 05:13 05:16 Temperature Pulse Rate 95 H 94 H 93 H Respiratory Rate Blood Pressure 102/69 Blood Pressure [Right] O2 Sat by Pulse 93 90 93 Oximetry 11/28/17 11/28/17 11/28/17 05:21 05:26 05:31 Temperature Pulse Rate 93 H 96 H 92 H Respiratory Rate Blood Pressure Blood Pressure [Right] O2 Sat by Pulse 93 93 94 Oximetry 11/28/17 11/28/17 11/28/17 05:35 05:36 05:41 Temperature Pulse Rate 97 H 95 H 92 H Respiratory Rate Blood Pressure Blood Pressure [Right] O2 Sat by Pulse 94 94 96 Oximetry 11/28/17 11/28/17 11/28/17 05:44 07:51 09:14 Temperature 97.2 F L 97.4 F L Pulse Rate 92 H 90 Respiratory 18 16 16 Rate Blood Pressure Blood Pressure 115/71 100/57 [Right] O2 Sat by Pulse 96 Oximetry - Exam Breasts: deferred Cardiovascular: Regular rate Lungs: Clear to auscultation Abdomen: Present: normal appearance Uterus: Present: normal FHR: category 1 Uterine Contraction Monitor Mode: External Uterine Contraction Pattern: Absent - Labs Labs: Abnormal Labs 11/27/17 11/27/17 11/28/17 20:00 23:31 04:34 WBC RBC Magnesium 3.50 H 4.40 H Urine pH 8.0 H 11/28/17 04:36 WBC 14.5 H RBC 3.62 L Magnesium Urine pH Laboratory Results - last 24 hr 11/27/17 11/27/17 11/28/17 20:00 23:31 04:34 WBC RBC Hgb Hct MCV MCH MCHC RDW Plt Count Magnesium 3.50 H 4.40 H Urine Color Colorless Urine Turbidity Clear Urine pH 8.0 H Ur Specific [place] 1.006 Urine Protein <15 mg/dl Urine Glucose (UA) Neg Urine Ketones Neg Urine Blood Sm Urine Nitrite Neg Urine Bilirubin Neg Urine Urobilinogen < 2.0 Ur Leukocyte Esterase Neg Urine WBC (Auto) < 1.0 Urine RBC (Auto) 7.0 U Epithel Cells (Auto) 2.0 Urine Bacteria (Auto) 1+ Urine Mucus Few Blood Type Antibody Screen 11/28/17 11/28/17 04:36 04:36 WBC 14.5 H RBC 3.62 L Hgb 11.3 Hct 33.8 MCV 93 MCH 31 MCHC 33 RDW 14.0 Plt Count 283 Magnesium Urine Color Urine Turbidity Urine pH Ur Specific [place] Urine Protein Urine Glucose (UA) Urine Ketones Urine Blood Urine Nitrite Urine Bilirubin Urine Urobilinogen Ur Leukocyte Esterase Urine WBC (Auto) Urine RBC (Auto) U Epithel Cells (Auto) Urine Bacteria (Auto) Urine Mucus Blood Type B POSITIVE Antibody Screen Positive
[2017-11-28] MEDS: NORMOSOL-R PH 7.4 1,000 ML IV SCH (12:08)
[2017-11-28] MEDS ORDERED: BENADRYL PO PRN ×2 (14:35→21:53)
[2017-11-28] MEDS: MAGNESIUM SULFATE 40GM/1000ML 40 GM/1,000 ML BAG IV SCH (17:34)
--- NOTE | 2017-11-28 17:55 | Consultation ---
History of Present Illness Consult date: 11/28/17 Requesting physician: SUNDAY GALINDO Reason for consult: menorrhagia, contractions History of present illness: Patient is a 32 year old Para 1001 who presents at 31 weeks with complaint of contractions. Patient was hospitalized from 11/25/17 and was discharged home on Thursday11/26/17 but returned with continued contractions. She was on Nifedipine while discharged. Her exam was 4-5 cm this AM. Her ultrasound showed a cervical length of 3.0 cm. At the time of my evaluation she DENIED ongoing contractions. PAST OBSTETRICAL HISTORY: 2016: at term, BW:6 pounds 9 oz. labor s/p previous admission with betamethasone x 2 and magnesium administration. Patient describes contractions over the last 2 days. She denies vaginal bleeding or fluid leakage per vagina. Past History Past Medical History: no pertinent history Past Surgical History: no surgical history - Obstetrical History : 2 Medications and Allergies Allergies Allergy/AdvReac Type Severity Reaction Status Date / Time amoxicillin Allergy Hives Verified 11/25/17 07:53 Penicillins Allergy Hives Verified 11/25/17 07:52 Home Medications Medication Instructions Recorded Confirmed Last Taken Type Pnv,Calcium 72/Iron/Folic Acid 1 tab PO DAILY 11/25/17 11/27/17 11/27/17 History [ Plus Tablet] NIFEdipine [Procardia] 10 mg PO Q8HR #90 capsule 11/27/17 11/27/17 11/27/17 17: 30 Rx diphenhydrAMINE [Benadryl CAP] 25 mg PO Q8H PRN #30 capsule 11/27/17 11/27/17 Unknown Rx Active Meds: Active Medications Acetaminophen (Tylenol) 650 mg PO Q4H PRN PRN Reason: Pain MILD(1-3)/Fever >100.5/CROWELL Last Admin: 11/27/17 23:12 Dose: 650 mg Diphenhydramine HCl (Benadryl) 25 mg PO Q8H PRN PRN Reason: Itching Last Admin: 11/28/17 15:02 Dose: 25 mg Docusate Sodium (Colace) 100 mg PO Q12H PRN PRN Reason: Constipation Clindamycin HCl (Cleocin 900 Mg/50 Ml) 900 mg in 50 mls @ 100 mls/hr IV Q8H [facility] ; Protocol Last Admin: 11/28/17 14:21 Dose: 100 mls/hr Magnesium Sulfate (Magnesium Sulfate 40gm/1000ml) 40 gm in 1,000 mls @ 50 mls/ hr IV DIRECT LUTHER Last Admin: 11/28/17 17:34 Dose: 2 gm/hr, 50 mls/hr Parenteral Electrolytes (Normosol-R Ph 7.4) 1,000 mls @ 125 mls/hr IV DIRECT LUTHER Last Admin: 11/28/17 12:08 Dose: 75 mls/hr Magnesium Hydroxide (Milk Of Magnesia) 30 ml PO QHS PRN PRN Reason: Laxative Effect Multivitamins/Iron/Calcium ( Vitamin) 1 each PO QDAY [facility] Last Admin: 11/28/17 09:59 Dose: 1 each Ondansetron HCl (Zofran) 4 mg IV Q6H PRN PRN Reason: Nausea And Vomiting Simethicone (Mylicon) 80 mg PO Q6H PRN PRN Reason: Gas pain Terbutaline Sulfate (Brethine) 0.25 mg SUB-Q Q20MIN [facility] Stop: 11/29/17 20:01 Last Admin: 11/27/17 20:55 Dose: 0.25 mg Zolpidem Tartrate (Ambien) 10 mg PO ONCE PRN PRN Reason: Sleep Last Admin: 11/28/17 00:49 Dose: 10 mg - Vital Signs Vital signs: Vital Signs Pulse Pulse Ox 90 97 11/27/17 19:59 11/27/17 19:59 Temp Pulse Resp BP Pulse Ox 96.5 F L 97 H 16 111/70 95 11/28/17 10:56 11/28/17 16:17 11/28/17 16:17 11/28/17 16:52 11/28/17 13:48 Results Result Diagrams: 11/28/17 04:36 Abnormal lab results 11/27/17 11/27/17 11/28/17 Range/Units 20:00 23:31 04:34 WBC (4.5-11.0) K/mm3 RBC (3.65-5.03) M/mm3 Magnesium 3.50 H 4.40 H (1.7-2.3) mg/dL Urine pH 8.0 H (5.0-7.0) 03/07/0811/28/17 11/28/17 Range/Units 04:36 11:43 16:52 WBC 14.5 H (4.5-11.0) K/mm3 RBC 3.62 L (3.65-5.03) M/mm3 Magnesium 5.10 H 5.00 H (1.7-2.3) mg/dL Urine pH (5.0-7.0) All other labs normal. Assessment and Plan ASSESSMENT: IUP at 31 weeks. Discrepancy between vaginal exam and ultrasound. At risk for delivery labor s/p previous admission with betamethasone x 2 and magnesium administration Rule out labor. FHR tracing category 1 Given the current findings, the likelihood for imminent premature delivery appears is INCREASED . RECOMMENDATIONS: 1. I am in agreement with admission and the administration of corticosteroids to enhance lung maturity. 2. As always, a complete check for urinary and cervico-vaginal infection should be pursued during this admission. Accordingly we would obtain and follow-up the results of a wet prep for bacterial vaginosis and a urine culture to rule out subclinical UTI and asymptomatic bacteriuria. 3. As always, I would abandon all attempts of tocolysis in the presence of and SVE > 5 cm, SROM, unexplained vaginal bleeding or a non- reassuring heart rate pattern. 4. If discharged, this patient will require intermittent sonographic cervical follow-up as dictated by symptoms or until 34 weeks gestation. 5. We will be happy to follow this patient with you. Thank you for allowing us to participate in the care of this patient. We look forward to the opportunity to assist in her continued management. If you have any questions, we may be reached at [phone].
[2017-11-28] MEDS: TYLENOL PO PRN (20:14)
[2017-11-28] MEDS ORDERED: BANOPHEN ANTI-ITCH TP PRN (22:17)
[2017-11-28] MEDS ORDERED: BENADRYL IV ONE (22:26)
[2017-11-29] MEDS ORDERED: STADOL IV PRN (00:15)
--- NOTE | 2017-11-29 00:25 | Progress Note ---
Assessment and Plan - Patient Problems (1) 31 weeks gestation of Onset Date: 11/25/17 Current Visit: No Status: Acute Plan to address problem: A: IUP @ 31 4/7 weeks contractions - intensifying P: Will discontinue tocolysis and allow labor to ensue Expectant vaginal delivery NICU notified. (2) contractions Onset Date: 11/25/17 Current Visit: No Status: Resolved (3) uterine contractions in third trimester, antepartum Onset Date: 11/25/17 Current Visit: No Status: Resolved Subjective - Subjective Date of service: 11/29/17 Principal diagnosis: IUP @ 31 4/7 weeks; contractions Interval history: Pt is a 32 yo BF EDC 01/27/18; EGA 31 3/7 weeks who represented to [facility] L[facility]D complaining of RUC's q 3-4 mins. She is currently receiving IV hydration, IV Magnesium sulfate 2gm/hr and contractions have increased despite attempts at tocolysis. She is now dilated 6cms per the nurse, so IV Magnesium sulfate will be discontinued and labor will be allowed to progress. Patient reports: new complaints (more intense contractions), movement normal, no loss of fluid, no vaginal bleeding Objective - Vital Signs Vital Signs: Vital Signs - 12hr 11/28/17 11/28/17 11/28/17 13:48 16:17 16:52 Temperature Pulse Rate 107 H 97 H Respiratory 16 16 Rate Blood Pressure Blood Pressure 117/71 123/68 111/70 [Right] O2 Sat by Pulse 95 Oximetry 11/28/17 11/28/17 11/28/17 17:54 19:54 22:01 Temperature 96.7 F L 97.8 F Pulse Rate 92 H 98 H 85 Respiratory 16 18 Rate Blood Pressure Blood Pressure 111/67 111/63 [Right] O2 Sat by Pulse 98 93 93 Oximetry 11/28/17 11/28/17 11/28/17 22:06 22:11 22:13 Temperature Pulse Rate 93 H 98 H 86 Respiratory Rate Blood Pressure 135/94 Blood Pressure [Right] O2 Sat by Pulse 94 94 Oximetry 11/28/17 11/28/17 11/28/17 22:16 22:19 22:21 Temperature Pulse Rate 90 93 H 89 Respiratory Rate Blood Pressure Blood Pressure [Right] O2 Sat by Pulse 96 94 93 Oximetry 0311/28/17 11/28/17 22:25 22:26 22:31 Temperature Pulse Rate 88 91 H 85 Respiratory Rate Blood Pressure Blood Pressure [Right] O2 Sat by Pulse 94 94 96 Oximetry 11/28/17 11/28/17 11/28/17 22:33 22:36 22:38 Temperature Pulse Rate 84 86 87 Respiratory Rate Blood Pressure Blood Pressure [Right] O2 Sat by Pulse 94 94 93 Oximetry 11/28/17 11/28/17 11/28/17 22:41 22:44 22:46 Temperature Pulse Rate 81 82 86 Respiratory Rate Blood Pressure Blood Pressure [Right] O2 Sat by Pulse 94 94 95 Oximetry 11/28/17 11/28/17 11/28/17 22:49 22:51 22:54 Temperature Pulse Rate 86 96 H 89 Respiratory Rate Blood Pressure Blood Pressure [Right] O2 Sat by Pulse 94 94 94 Oximetry 11/28/17 11/28/17 11/28/17 22:56 23:01 23:03 Temperature Pulse Rate 83 82 87 Respiratory Rate Blood Pressure Blood Pressure [Right] O2 Sat by Pulse 94 96 94 Oximetry 11/28/17 11/28/17 11/28/17 23:06 23:11 23:13 Temperature Pulse Rate 91 H 88 92 H Respiratory Rate Blood Pressure 124/81 Blood Pressure [Right] O2 Sat by Pulse 95 96 Oximetry 11/28/17 11/28/17 11/28/17 23:16 23:21 23:26 Temperature Pulse Rate 92 H 82 81 Respiratory Rate Blood Pressure Blood Pressure [Right] O2 Sat by Pulse 97 97 99 Oximetry 11/28/17 11/28/17 11/28/17 23:31 23:36 23:43 Temperature Pulse Rate 81 86 Respiratory Rate Blood Pressure Blood Pressure [Right] O2 Sat by Pulse 97 96 80 L Oximetry 11/28/17 11/28/17 11/29/17 23:49 23:56 00:01 Temperature Pulse Rate 53 L 70 Respiratory Rate Blood Pressure Blood Pressure [Right] O2 Sat by Pulse 87 81 L 84 Oximetry 11/29/17 11/29/17 00:03 00:08 Temperature Pulse Rate 62 73 Respiratory Rate Blood Pressure Blood Pressure [Right] O2 Sat by Pulse 85 81 L Oximetry - Exam FHR: category 1 Uterine Contraction Monitor Mode: External Cervical Dilatation: 6 (per nurse) Cervical Effacement Percentage: 90 (per nurse) Uterine Contraction Pattern: Regular Uterine Tone Measurement Phase: Contraction Uterine Contraction Intensity: Strong/Firm - Labs Labs: Abnormal Labs 11/27/17 11/27/17 11/28/17 20:00 23:31 04:34 WBC RBC Magnesium 3.50 H 4.40 H Urine pH 8.0 H 11/28/17 11/28/17 11/28/17 04:36 11:43 16:52 WBC 14.5 H RBC 3.62 L Magnesium 5.10 H 5.00 H Urine pH 11/28/17 22:53 WBC RBC Magnesium 5.50 H Urine pH Laboratory Results - last 24 hr 11/27/17 11/28/17 11/28/17 23:31 04:34 04:36 WBC 14.5 H RBC 3.62 L Hgb 11.3 Hct 33.8 MCV 93 MCH 31 MCHC 33 RDW 14.0 Plt Count 283 Magnesium 3.50 H 4.40 H Blood Type Antibody Screen Antibody Identification 11/28/17 11/28/17 11/28/17 04:36 11:43 16:52 WBC RBC Hgb Hct MCV MCH MCHC RDW Plt Count Magnesium 5.10 H 5.00 H Blood Type B POSITIVE Antibody Screen Negative Antibody Identification Not Reportable 11/28/17 22:53 WBC RBC Hgb Hct MCV MCH MCHC RDW Plt Count Magnesium 5.50 H Blood Type Antibody Screen Antibody Identification
[2017-11-29] MEDS: NORMOSOL-R PH 7.4 1,000 ML IV SCH (01:18)
[2017-11-29] MEDS ORDERED: ePHEDrine SULFATE ONE (01:49)
[2017-11-29] MEDS ORDERED: PITOCin/NS 20 UNIT/1000ML DRIP 20,000 MILLIUNITS/1,000 ML BAG IV ONE (01:50)
--- NOTE | 2017-11-29 02:02 | Anesthesia Consultation ---
Anesthesia Consult and Med Hx - Airway Anesthetic Teeth Evaluation: Good ROM Head & Neck: Adequate Mental/Hyoid Distance: Adequate Mallampati Class: Class II - Pulmonary Exam CTA: Yes - Cardiac Exam Cardiac Exam: RRR - Pre-Operative Health Status ASA Pre-Surgery Classification: ASA2 Proposed Anesthetic Plan: Epidural, Spinal - Pulmonary Hx Asthma: No COPD: No Hx Pneumonia: No - Cardiovascular System Hx Hypertension: No - Central Nervous System Hx Seizures: No Hx Psychiatric Problems: No - Endocrine Hx Renal Disease: No Hx End Stage Renal Disease: No Hx Hypothyroidism: No Hx Hyperthyroidism: No - Hematic Hx Anemia: No Hx Sickle Cell Disease: No - Other Systems Hx Alcohol Use: No
[2017-11-29] MEDS ORDERED: ePHEDrine SULFATE IV PRN (03:02)
[2017-11-29] MEDS ORDERED: NARCAN 2 MG/2 ML IV PRN (03:02)
[2017-11-29] MEDS ORDERED: PITOCin/NS 20 UNIT/1000ML DRIP 20 UNITS/1,000 ML BAG IV SCH ×2 (04:00→05:00)
[2017-11-29] MEDS ORDERED: fentaNYL-BUPIV 2 MCG/ML-0.125% 200 MCG/100 ML BAG EPIDURAL SCH (04:00)
--- NOTE | 2017-11-29 04:24 | Procedure Note ---
OB Delivery Note - Delivery Date of Delivery: 11/29/17 Surgeon: SUNDAY GALINDO Estimated blood loss: 100cc - Vaginal Delivery presentation: vertex Delivery position: OA Intrapartum events: labor-<37 weeks Delivery induction: none Delivery augmentation: rupture of membranes Delivery monitor: external FHT, external uterine Route of delivery: Delivery placenta: spontaneous Delivery cord: 3 umbilical vessels Episiotomy: none Delivery laceration: none Anesthesia: epidural Delivery comments: Infant delivered OA and handed to awaiting Peds/RT in attendance. - Infant A at 1 minute: 8 at 5 minutes: 8 Infant Gender: Male (1640gms)
[2017-11-29] MEDS ORDERED: LANSINOH TP PRN (04:25)
[2017-11-29] MEDS ORDERED: MILK OF MAGNESIA PO PRN (04:25)
[2017-11-29] MEDS ORDERED: PHENERGAN PR PRN (04:25)
[2017-11-29] MEDS ORDERED: TUCKS PAD TP PRN (04:25)
[2017-11-29] MEDS ORDERED: PHENERGAN PO PRN (04:25)
[2017-11-29] MEDS ORDERED: DULCOLAX PR PRN (04:25)
[2017-11-29] MEDS ORDERED: TYLENOL PO PRN (04:25)
[2017-11-29] MEDS ORDERED: ZOFRAN IV PRN (04:25)
[2017-11-29] MEDS ORDERED: SODIUM CHLORIDE FLUSH SYRINGE 10 ML IV NR (05:00)
[2017-11-29] MEDS: MOTRIN PO SCH ×4 (05:09→23:24)
[2017-11-29] MEDS ORDERED: SENOKOT S PO SCH (06:00)
[2017-11-29] MEDS: BENADRYL PO PRN ×2 (06:35→19:55)
[2017-11-29] MEDS: NORCO 5/325 PO PRN (06:35)
[2017-11-29] MEDS ORDERED: BENADRYL ONE (08:23)
[2017-11-29] MEDS ORDERED: DECADRON IV ONE (08:24)
--- NOTE | 2017-11-29 09:58 | Ultrasound Report ---
ULTRASOUND OB LIMITED History: labor Technique: Transabdominal ultrasound with Doppler interrogation. Gestation: Single Position: Cephalic Heart Rate: 135 BPM Cervical length: 3.0 cm (Normal > 3 cm)
[2017-11-29] MEDS ORDERED: PEPCID IV SCH (10:00)
[2017-11-29] MEDS ORDERED: Fluarix Quad 2017-2018(36 MOS+ IM ONE (12:00)
[2017-11-29] MEDS: PRENATAL VITAMIN PO SCH (12:26)
[2017-11-29] MEDS: FEOSOL PO SCH ×2 (12:27→23:24)
[2017-11-29 17:46] LABS: Hematocrit 38.6 % (30.3-42.9); Hemoglobin 12.9 gm/dl (10.1-14.3)
[2017-11-30] MEDS: MOTRIN PO SCH ×2 (05:06→15:45)
[2017-11-30] MEDS: BENADRYL PO PRN ×2 (05:06→11:53)
[2017-11-30] MEDS ORDERED: M-M-R II VACCINE SUB-Q ONE (06:00)
[2017-11-30] MEDS ORDERED: BOOSTRIX IM ONE (06:00)
--- NOTE | 2017-11-30 09:36 | Progress Note ---
Assessment and Plan - Patient Problems (1) 31 weeks gestation of Onset Date: 11/25/17 Current Visit: No Status: Resolved (2) contractions Onset Date: 11/25/17 Current Visit: No Status: Resolved (3) uterine contractions in third trimester, antepartum Onset Date: 11/25/17 Current Visit: No Status: Resolved (4) (normal spontaneous vaginal delivery) Onset Date: 11/30/17 Current Visit: Yes Status: Resolved Plan to address problem: A: S/P - PPD #1 Doing well Baby in NICU - improving P: May go home today Subjective - Subjective Date of service: 11/30/17 Principal diagnosis: s/p - PPD #1 Interval history: Pt is feeling well except itching has returned. Bleeding has improved. Patient reports: appetite normal, voiding normally, pain well controlled, flatus , ambulating normally, no dizzy ambulation, no nauseated [place]: doing well, in NICU Objective - Vital Signs Latest vital signs: Vital Signs Temp Pulse Resp BP BP Pulse Ox 11/30/17 08:30 97.8 F 74 20 114/77 11/29/17 23:00 99.1 F 71 18 115/73 11/29/17 12:14 98.4 F 72 18 132/74 100 11/29/17 10:44 20 98 Intake and Output 11/29/17 11/30/17 11/30/17 22:59 06:59 14:59 Intake Total 360 240 120 Balance 360 240 120 Intake: Oral 120 Intake, Free Water 360 240 Other: Total, Intake Amount 120 # Voids Void 2 2 1 # Bowel Movements 1 - Exam Breasts: Present: deferred Cardiovascular: Present: Regular rate Lungs: Present: Clear to auscultation Abdomen: Present: normal appearance, soft Uterus: Present: normal, firm, fundal height below umbilicus Extremities: Present: normal - Labs Labs: Laboratory Tests 11/27/17 11/27/17 11/28/17 20:00 23:31 04:34 WBC RBC Hgb Hct MCV MCH MCHC RDW Plt Count Magnesium 3.50 H 4.40 H Urine Color Colorless Urine Turbidity Clear Urine pH 8.0 H Ur Specific [place] 1.006 Urine Protein <15 mg/dl Urine Glucose (UA) Neg Urine Ketones Neg Urine Blood Sm Urine Nitrite Neg Urine Bilirubin Neg Urine Urobilinogen < 2.0 Ur Leukocyte Esterase Neg Urine WBC (Auto) < 1.0 Urine RBC (Auto) 7.0 U Epithel Cells (Auto) 2.0 Urine Bacteria (Auto) 1+ Urine Mucus Few Blood Type Antibody Screen Antibody Identification 11/28/17 11/28/17 11/28/17 04:36 04:36 11:43 WBC 14.5 H RBC 3.62 L Hgb 11.3 Hct 33.8 MCV 93 MCH 31 MCHC 33 RDW 14.0 Plt Count 283 Magnesium 5.10 H Urine Color Urine Turbidity Urine pH Ur Specific [place] Urine Protein Urine Glucose (UA) Urine Ketones Urine Blood Urine Nitrite Urine Bilirubin Urine Urobilinogen Ur Leukocyte Esterase Urine WBC (Auto) Urine RBC (Auto) U Epithel Cells (Auto) Urine Bacteria (Auto) Urine Mucus Blood Type B POSITIVE Antibody Screen Negative Antibody Identification Not Reportable 11/28/17 11/28/17 11/29/17 16:52 22:53 17:32 WBC RBC Hgb 12.9 Hct 38.6 MCV MCH MCHC RDW Plt Count Magnesium 5.00 H 5.50 H Urine Color Urine Turbidity Urine pH Ur Specific [place] Urine Protein Urine Glucose (UA) Urine Ketones Urine Blood Urine Nitrite Urine Bilirubin Urine Urobilinogen Ur Leukocyte Esterase Urine WBC (Auto) Urine RBC (Auto) U Epithel Cells (Auto) Urine Bacteria (Auto) Urine Mucus Blood Type Antibody Screen Antibody Identification
--- NOTE | 2017-11-30 09:42 | Discharge Summary ---
Providers - Providers Date of Admission: 11/27/17 21:37 Date of discharge: 11/30/17 Attending physician: SUNDAY GALINDO 11/28/17 10:41 Consult to Physician [CONS] Routine Consulting Provider: GABRIELLA LOVE I Reason For Exam: IUP @ 31 weeks; PTL Place consult to:: LONNIE Notified:: yes Phone number called:: [phone] Was contact made?: Yes If yes, spoke with:: Genia Time called:: 10:43 Primary care physician: SUNDAY GALINDO Hospitalization Reason for admission: IUP - , labor Delivery: Episiotomy: none Laceration: none Other procedures: none complications: none Discharge diagnosis: delivery [place] baby: male Hospital course: Unremarkable except allergic reaction to possible Clindamycin Condition at discharge: Good Disposition: [id number] TO HOME OR SELFCARE - Discharge Diagnoses (1) 31 weeks gestation of Status: Resolved (2) contractions Status: Resolved (3) uterine contractions in third trimester, antepartum Status: Resolved (4) (normal spontaneous vaginal delivery) Status: Resolved Plan - Discharge Medications Prescriptions: Dexamethasone [Decadron] 2 mg PO Q6HR #30 tablet diphenhydrAMINE [Benadryl CAP] 25 mg PO Q6H PRN #30 capsule PRN Reason: Itching Ibuprofen [Motrin 600 MG tab] 600 mg PO Q6H #30 tablet Vit-Fe Fumar-FA [ Vitamin] 1 each PO QDAY #30 tablet - Provider Discharge Summary Activity: routine, no sex for 6 weeks, no heavy lifting 4 weeks, no strenuous exercise Diet: routine Instructions: routine Additional instructions: [] Smoking cessation referral if applicable(refer to patient education folder for contact #) [] Refer to [facility]'s [facility] Booklet Call your doctor immediately for: * Fever > 100.5 * Heavy vaginal bleeding ( >1 pad per hour) * Severe persistent headache * Shortness of breath * Reddened, hot, painful area to leg or breast * Drainage or odor from incision. * Keep incision clean and dry at all times and follow doctor's instructions regarding bathing/showering - Follow up plan Follow up: SUNDAY GALINDO MD [Primary Care Provider] - 14 Days
[2017-11-30] MEDS: PRENATAL VITAMIN PO SCH (11:24)
[2017-11-30] MEDS: FEOSOL PO SCH (11:24)
[2017-11-30] MEDS ORDERED: PEPCID PO SCH (12:00)
[2017-11-30] MEDS: NORCO 5/325 PO PRN (15:45)
[2017-11-30 17:20] VITALS: BP 115/76
== END 2017-11-30 17:40 | disposition home or self-care (01) | DRG 775 ==
LOC: TRG 19:47 → LD 21:37 → OBSVTOIN 21:37 → LD 22:11 → OB 11-29 05:44
PROVIDERS: ADMIT Obstetrics & Gynecology; ATTEND Obstetrics & Gynecology
PROC: 10E0XZZ Delivery of Products of Conception, External Approach (ICD-10-PCS; principal; 2017-11-29)
PROC: 3E0R3BZ Introduction of Anesthetic Agent into Spinal Canal, Percutaneous Approach (ICD-10-PCS; 2017-11-29)
PROC: 00HU33Z Insertion of Infusion Device into Spinal Canal, Percutaneous Approach (ICD-10-PCS; 2017-11-29)
DX: O60.14X0 Preterm labor third trimester with preterm delivery third trimester, not applicable or unspecified (principal); Z3A.31 31 weeks gestation of pregnancy; Z37.0 Single live birth; Z88.1 Allergy status to other antibiotic agents; Z88.0 Allergy status to penicillin
CPT/HCPCS: 36415; 76815; 81001; 83735; 85014; 85018; 85027; 86850; 86870; 86900; 86901; 88307; 90471; 90686; 90715; 93005; 93010; G0008; J0595; J1100; J1200; J2405; J2590; J3105; J3475; Q0169

== ENCOUNTER 2018-01-10 01:21 | Emergency (ER) | payer MEDICAID ==
--- NOTE | 2018-01-10 03:13 | Emergency Department Report ---
ED ENT HPI - General Chief complaint: Dental/Oral Stated complaint: TOOTHACHE Time Seen by Provider: 01/10/18 02:43 Source: patient Mode of arrival: Ambulatory Limitations: No Limitations - History of Present Illness Initial comments: This is a 32 y.o. female with bilateral tooth ache for 2 weeks. She went to [facility] and told she would have to return on February 06 the surgery because the schedule is full and insurance approval. She is waiting on medicare to switch plan because she gave early. She have 2 broken teeth and one cavity one both sides of mouth. She has been taking ibuprofen and tylenol with no improvement of symptoms. Today she noticed both side of her face was swollen and the pain is 10/10 constantly. It is a throbbing sensation that is causing her head to hurt and difficulty eating. MD complaint: tooth pain -: week(s) (2 weeks) Location: tooth # (15, 1, 32) Severity: severe Severity scale (0 -10): 10 Quality: constant, other (throbbing) Consistency: constant Improves with: none Worsens with: eating, rest Context- Dental: history of dental caries, poor dental care Associated Symptoms: fever, gum swelling, toothache. denies: cough, pain with swallowing, sore throat, tinnitus, hearing loss, discharge from ear, rhinorrhea - Related Data Home Medications Medication Instructions Recorded Confirmed Last Taken Pnv,Calcium 72/Iron/Folic Acid 1 tab PO DAILY 11/25/17 11/27/17 11/27/17 [ Plus Tablet] Previous Rx's Medication Instructions Recorded Last Taken Type NIFEdipine [Procardia] 10 mg PO Q8HR #90 capsule 11/27/17 11/27/17 17:30 Rx diphenhydrAMINE [Benadryl CAP] 25 mg PO Q8H PRN #30 capsule 11/27/17 Unknown Rx Dexamethasone [Decadron] 2 mg PO Q6HR #30 tablet 11/30/17 Unknown Rx Ibuprofen [Motrin 600 MG tab] 600 mg PO Q6H #30 tablet 11/30/17 Unknown Rx Vit-Fe Fumar-FA [ 1 each PO QDAY #30 tablet 11/30/17 Unknown Rx Vitamin] diphenhydrAMINE [Benadryl CAP] 25 mg PO Q6H PRN #30 capsule 11/30/17 Unknown Rx Acetaminophen/Codeine [Tylenol 1 tab PO Q6H PRN #15 tab 01/10/18 Unknown Rx /Codeine # 3 tab] Cephalexin [Keflex] 500 mg PO Q12HR 10 Days #20 cap 01/10/18 Unknown Rx Allergies Allergy/AdvReac Type Severity Reaction Status Date / Time amoxicillin Allergy Hives Verified 11/25/17 07:53 clindamycin [From Cleocin] Allergy Hives Verified 11/29/17 04:46 Penicillins Allergy Hives Verified 11/25/17 07:52 ED Dental HPI - General Chief complaint: Dental/Oral Stated complaint: TOOTHACHE Time Seen by Provider: 01/10/18 02:43 Source: patient Mode of arrival: Ambulatory Limitations: No Limitations - Related Data Home Medications Medication Instructions Recorded Confirmed Last Taken Pnv,Calcium 72/Iron/Folic Acid 1 tab PO DAILY 11/25/17 11/27/17 11/27/17 [ Plus Tablet] Previous Rx's Medication Instructions Recorded Last Taken Type NIFEdipine [Procardia] 10 mg PO Q8HR #90 capsule 11/27/17 11/27/17 17:30 Rx diphenhydrAMINE [Benadryl CAP] 25 mg PO Q8H PRN #30 capsule 11/27/17 Unknown Rx Dexamethasone [Decadron] 2 mg PO Q6HR #30 tablet 11/30/17 Unknown Rx Ibuprofen [Motrin 600 MG tab] 600 mg PO Q6H #30 tablet 11/30/17 Unknown Rx Vit-Fe Fumar-FA [ 1 each PO QDAY #30 tablet 11/30/17 Unknown Rx Vitamin] diphenhydrAMINE [Benadryl CAP] 25 mg PO Q6H PRN #30 capsule 11/30/17 Unknown Rx Acetaminophen/Codeine [Tylenol 1 tab PO Q6H PRN #15 tab 01/10/18 Unknown Rx /Codeine # 3 tab] Cephalexin [Keflex] 500 mg PO Q12HR 10 Days #20 cap 01/10/18 Unknown Rx Allergies Allergy/AdvReac Type Severity Reaction Status Date / Time amoxicillin Allergy Hives Verified 11/25/17 07:53 clindamycin [From Cleocin] Allergy Hives Verified 11/29/17 04:46 Penicillins Allergy Hives Verified 11/25/17 07:52 ED Review of Systems ROS: Stated complaint: TOOTHACHE Other details as noted in HPI Constitutional: denies: chills, fever ENT: dental pain. denies: ear pain, throat pain, hearing loss, epistaxis, congestion Respiratory: denies: cough, shortness of breath, wheezing Cardiovascular: denies: chest pain, palpitations Gastrointestinal: denies: abdominal pain, nausea, diarrhea Neurological: headache. denies: weakness, paresthesias Psychiatric: denies: anxiety, depression ED Past Medical Hx - Past Medical History Hx Hypertension: Yes (gestational) Hx Congestive Heart Failure: No Hx Diabetes: No Hx Deep Vein Thrombosis: No Hx Renal Disease: No Hx Sickle Cell Disease: No Hx Seizures: No Hx Asthma: No Hx COPD: No - Social History Smoking Status: Never Smoker Substance Use Type: None - Medications Home Medications: Home Medications Medication Instructions Recorded Confirmed Last Taken Type Pnv,Calcium 72/Iron/Folic Acid 1 tab PO DAILY 11/25/17 11/27/17 11/27/17 History [ Plus Tablet] NIFEdipine [Procardia] 10 mg PO Q8HR #90 capsule 11/27/17 11/27/17 11/27/17 17: 30 Rx diphenhydrAMINE [Benadryl CAP] 25 mg PO Q8H PRN #30 capsule 11/27/17 11/27/17 Unknown Rx Dexamethasone [Decadron] 2 mg PO Q6HR #30 tablet 11/30/17 Unknown Rx Ibuprofen [Motrin 600 MG tab] 600 mg PO Q6H #30 tablet 11/30/17 Unknown Rx Vit-Fe Fumar-FA [ 1 each PO QDAY #30 tablet 11/30/17 Unknown Rx Vitamin] diphenhydrAMINE [Benadryl CAP] 25 mg PO Q6H PRN #30 capsule 11/30/17 Unknown Rx Acetaminophen/Codeine [Tylenol 1 tab PO Q6H PRN #15 tab 01/10/18 Unknown Rx /Codeine # 3 tab] Cephalexin [Keflex] 500 mg PO Q12HR 10 Days #20 cap 01/10/18 Unknown Rx ED Physical Exam - General Limitations: No Limitations General appearance: alert, in no apparent distress - ENT ENT exam: Present: mucous membranes moist, other (dental caries #32, dental avulsion 1/2 tooth #1, #15) - Respiratory Respiratory exam: Present: normal lung sounds bilaterally. Absent: respiratory distress, wheezes, rales, accessory muscle use - Cardiovascular Cardiovascular Exam: Present: regular rate, normal rhythm, normal heart sounds. Absent: systolic murmur, diastolic murmur, rubs, gallop - GI/Abdominal GI/Abdominal exam: Present: soft, normal bowel sounds. Absent: distended, tenderness, guarding, rebound, rigid, organomegaly, mass - Neurological Exam Neurological exam: Present: alert, oriented X3 - Psychiatric Psychiatric exam: Present: normal affect, normal mood - Skin Skin exam: Present: warm, dry, intact, normal color. Absent: rash ED Course Vital Signs 01/10/18 01/10/18 01:52 02:13 Temperature 99.0 F 99 F Pulse Rate 56 L 56 L Respiratory 18 18 Rate Blood Pressure 152/103 152/103 O2 Sat by Pulse 99 99 Oximetry ED Medical Decision Making - Medical Decision Making This is a 32-year-old female that presents with tooth ache and bilateral facial swelling for 2 weeks. Patient is stable and was examined by me. Blood pressure elevated 2/2 pain. Given norco once in ER. Susceptible of dental caries and avulsion. Start Discussed plan with patient. She agreed with ER plan. Discharged home with clindamycin and tyleonl #3. Follow up with dentist and referral to [facility]. Critical care attestation.: If time is entered above; I have spent that time in minutes in the direct care of this critically ill patient, excluding procedure time. ED Disposition Clinical Impression: Dental caries, Elevated blood pressure reading Fractured tooth Qualifiers: Encounter type: initial encounter Fracture type: closed Qualified Code(s): S02.5XXA - Fracture of tooth (traumatic), initial encounter for closed fracture Disposition: TO HOME OR SELFCARE Is pt being admited?: No Does the pt Need Aspirin: No Condition: Stable Instructions: Dental Caries (ED), Toothache (ED) Additional Instructions: Complete all days of keflex as prescribed for 10 days. Follow up with Dentist at [facility] in 24-72 hours. Prescriptions: Acetaminophen/Codeine [Tylenol /Codeine # 3 tab] 1 tab PO Q6H PRN #15 tab PRN Reason: Pain Cephalexin [Keflex] 500 mg PO Q12HR 10 Days #20 cap Referrals: [facility] [Outside] - 3-5 Days [facility] [Outside] - 3-5 Days [facility] [Outside] - 3-5 Days Time of Disposition: 03:35 Print Language: KYRGYZ
[2018-01-10] MEDS ORDERED: NORCO 7.5/325 PO ONE (03:32)
[2018-01-10] MEDS ORDERED: KEFLEX PO ONE (03:32)
[2018-01-10 04:32] VITALS: BP 150/98
== END 2018-01-10 04:40 | disposition home or self-care (01) ==
LOC: ED 01:21
DX: K02.9 Dental caries, unspecified (principal); S02.5XXA Fracture of tooth (traumatic), initial encounter for closed fracture; R03.0 Elevated blood-pressure reading, without diagnosis of hypertension; X58.XXXA Exposure to other specified factors, initial encounter; Y93.89 Activity, other specified; Y92.89 Other specified places as the place of occurrence of the external cause; Y99.8 Other external cause status
CPT/HCPCS: 99282

== ENCOUNTER 2018-05-17 13:17 | Emergency (ER) | payer SELFPAY ==
[2018-05-17] MEDS ORDERED: SOLU-Medrol ONE (14:13)
[2018-05-17] MEDS ORDERED: PEPCID IV ONE ×3 (14:13→14:49)
[2018-05-17] MEDS ORDERED: BENADRYL ONE (14:14)
[2018-05-17] MEDS ORDERED: BENADRYL IV ONE ×2 (14:22→18:28)
[2018-05-17] MEDS ORDERED: SOLU-Medrol IV ONE (14:22)
--- NOTE | 2018-05-17 14:25 | Emergency Department Report ---
ED Allergic Reaction HPI - General Chief complaint: Allergic Reaction Stated complaint: ALLERGIC REACTION/TOOTHACHE/CHEST PAIN Time Seen by Provider: 05/17/18 14:23 Source: patient Mode of arrival: Ambulatory Limitations: No Limitations - History of Present Illness Initial Comments: Patient complains of allergic reaction which started yesterday. She is not sure what she is allergic to. However she states she is having difficulty breathing and swelling on her face and her hands. MD Complaint: allergic reaction -: Sudden Exposure: unknown Symptoms: rash, itching, facial swelling, lip swelling Severity: severe Treatment Prior to Arrival: benadryl Previous Allergy History: none - Related Data Home Medications Medication Instructions Recorded Confirmed Last Taken Cetirizine HCl [Zyrtec] 10 mg PO DAILY 05/17/18 05/17/18 05/17/18 Naproxen Sodium [Aleve] 220 mg PO DAILY 05/17/18 05/17/18 05/17/18 Previous Rx's Medication Instructions Recorded Last Taken Type diphenhydrAMINE [Benadryl CAP] 25 mg PO Q6H PRN #30 capsule 11/30/17 05/17/18 Rx EPINEPHrine [Epipen 2-Kishore] 0.3 mg IJ ONCE PRN #2 auto.injct 05/17/18 Unknown Rx predniSONE [Prednisone] 10 mg PO DAILY #42 tab.ds.pk 05/17/18 Unknown Rx Allergies Allergy/AdvReac Type Severity Reaction Status Date / Time amoxicillin Allergy Hives Verified 11/25/17 07:53 clindamycin [From Cleocin] Allergy Hives Verified 11/29/17 04:46 peanut Allergy Swelling Verified 05/17/18 13:49 Penicillins Allergy Hives Verified 11/25/17 07:52 ED Review of Systems ROS: Stated complaint: ALLERGIC REACTION/TOOTHACHE/CHEST PAIN Other details as noted in HPI Comment: All other systems reviewed and negative Constitutional: denies: chills, fever Eyes: denies: eye pain, eye discharge ENT: denies: ear pain, throat pain Respiratory: shortness of breath. denies: cough Cardiovascular: denies: chest pain, palpitations Endocrine: no symptoms reported Gastrointestinal: as per HPI Genitourinary: as per HPI Musculoskeletal: as per HPI Skin: rash, pruritus Neurological: denies: headache, weakness Psychiatric: denies: anxiety, depression Hematological/Lymphatic: denies: easy bleeding, easy bruising ED Past Medical Hx - Past Medical History Previous Medical History?: No Hx Hypertension: Yes (gestational) Hx Congestive Heart Failure: No Hx Diabetes: No Hx Deep Vein Thrombosis: No Hx Renal Disease: No Hx Sickle Cell Disease: No Hx Seizures: No Hx Asthma: No Hx COPD: No - Surgical History Past Surgical History?: No - Social History Smoking Status: Never Smoker Substance Use Type: None - Medications Home Medications: Home Medications Medication Instructions Recorded Confirmed Last Taken Type diphenhydrAMINE [Benadryl CAP] 25 mg PO Q6H PRN #30 capsule 11/30/17 05/17/18 Rx Cetirizine HCl [Zyrtec] 10 mg PO DAILY 05/17/18 05/17/18 05/17/18 History EPINEPHrine [Epipen 2-Kishore] 0.3 mg IJ ONCE PRN #2 auto.injct 05/17/18 Unknown Rx Naproxen Sodium [Aleve] 220 mg PO DAILY 05/17/18 05/17/18 05/17/18 History predniSONE [Prednisone] 10 mg PO DAILY #42 tab.ds.pk 05/17/18 Unknown Rx ED Physical Exam - General Limitations: No Limitations General appearance: alert, in no apparent distress - Head Head exam: Present: atraumatic, other (facial swelling with lip swelling.) - Eye Eye exam: Present: normal appearance, PERRL, EOMI Pupils: Present: normal accommodation - ENT ENT exam: Present: normal exam, normal orophraynx, mucous membranes moist - Neck Neck exam: Present: normal inspection, full ROM. Absent: tenderness - Respiratory Respiratory exam: Present: normal lung sounds bilaterally. Absent: respiratory distress, wheezes, rales, rhonchi, stridor - Cardiovascular Cardiovascular Exam: Present: regular rate, normal rhythm, normal heart sounds - GI/Abdominal GI/Abdominal exam: Present: soft, normal bowel sounds. Absent: distended, tenderness, guarding, rebound - Extremities Exam Extremities exam: Present: normal inspection, full ROM, normal capillary refill - Back Exam Back exam: Present: normal inspection, full ROM, tenderness - Neurological Exam Neurological exam: Present: alert, oriented X3, CN II-XII intact - Psychiatric Psychiatric exam: Present: normal affect, normal mood - Skin Skin exam: Present: warm, dry, intact, rash, urticaria ED Course Vital Signs 05/17/18 05/17/18 05/17/18 13:49 14:06 14:23 Temperature 98.9 F Pulse Rate 75 Respiratory 18 18 Rate Blood Pressure 126/92 O2 Sat by Pulse 99 98 Oximetry 05/17/18 05/17/18 05/17/18 15:00 16:00 17:00 Temperature Pulse Rate Respiratory Rate Blood Pressure O2 Sat by Pulse 95 99 100 Oximetry 05/17/18 05/17/18 05/17/18 18:00 18:30 20:00 Temperature Pulse Rate Respiratory Rate Blood Pressure 123/69 123/69 111/55 O2 Sat by Pulse 100 99 98 Oximetry - Reevaluation(s) Reevaluation #1: 05/17/18 17:23 Patient to be admitted by the hospitalist Dr. Shaffer. 05/17/18 20:59 ED Medical Decision Making - Lab Data Result diagrams: 05/17/18 15:27 05/17/18 15:27 - EKG Data -: EKG Interpreted by Me EKG shows normal: sinus rhythm Rate: normal (60) - EKG Data When compared to previous EKG there are: previous EKG unavailable Interpretation: normal EKG, other (No STEMI.) - Radiology Data Radiology results: report reviewed, image reviewed - Medical Decision Making Allergic reaction. Critical care attestation.: If time is entered above; I have spent that time in minutes in the direct care of this critically ill patient, excluding procedure time. ED Disposition Clinical Impression: Allergic reaction Qualifiers: Encounter type: initial encounter Qualified Code(s): T78.40XA - Allergy, unspecified, initial encounter Disposition: OP ADMIT IP TO THIS HOSP Is pt being admited?: Yes Does the pt Need Aspirin: No Condition: Stable Instructions: Urticaria (ED) Prescriptions: EPINEPHrine [Epipen 2-Kishore] 0.3 mg IJ ONCE PRN #2 auto.injct PRN Reason: Anaphylaxis predniSONE [Prednisone] 10 mg PO DAILY #42 tab.ds.pk Referrals: PRIMARY CARE, [Primary Care Provider] - 3-5 Days Forms: Work/School Release Form(ED) Time of Disposition: 17:00
[2018-05-17] MEDS ORDERED: NACL 0.9% 1000 ML 1,000 ML IV ONE (14:49)
[2018-05-17] MEDS ORDERED: ADRENALIN SUB-Q ONE (14:49)
--- NOTE | 2018-05-17 15:34 | XRay Report ---
AP CHEST: HISTORY: Chest pain, allergic reaction AP view of the chest demonstrates a normal mediastinal and cardiac contour with clear lungs and normal bony and soft tissue structures. IMPRESSION: Unremarkable AP chest.
[2018-05-17 15:59] LABS: Basophils % (Auto) 0.2 % (0.0-1.8); Eosinophils # (Auto) 0.1 K/mm3 (0.0-0.4); Eosinophils % (Auto) 1.1 % (0.0-4.3); Hematocrit 45.1 % (30.3-42.9); Hemoglobin 14.8 gm/dl (10.1-14.3); Lymphocytes # (Auto) 1.4 K/mm3 (1.2-5.4); Mean Corpuscular HGB Conc 33 % (30-34); Mean Corpuscular Hemoglobin 30 pg (28-32); Mean Corpuscular Volume 92 fl (79-97); Monocytes # (Auto) 0.2 K/mm3 (0.0-0.8); Monocytes % (Auto) 1.8 % (0.0-7.3); Platelet Count 254 K/mm3 (140-440); Red Blood Count 4.93 M/mm3 (3.65-5.03); Red Cell Distribution Width 13.9 % (13.2-15.2)
[2018-05-17 16:20] LABS: Alanine Aminotransferase 16 units/L (7-56); Albumin 4.2 g/dL (3.9-5); BUN/Creatinine Ratio 26; Blood Urea Nitrogen 13 mg/dL (7-17); Calcium 9.4 mg/dL (8.4-10.2); Hemolysis Index 18
[2018-05-17] MEDS ORDERED: TYLENOL PO ONE (16:35)
--- NOTE | 2018-05-17 18:31 | Consultation ---
Medications and Allergies Allergies Allergy/AdvReac Type Severity Reaction Status Date / Time amoxicillin Allergy Hives Verified 11/25/17 07:53 clindamycin [From Cleocin] Allergy Hives Verified 11/29/17 04:46 peanut Allergy Swelling Verified 05/17/18 13:49 Penicillins Allergy Hives Verified 11/25/17 07:52 Home Medications Medication Instructions Recorded Confirmed Last Taken Type diphenhydrAMINE [Benadryl CAP] 25 mg PO Q6H PRN #30 capsule 11/30/17 05/17/18 Rx Cetirizine HCl [Zyrtec] 10 mg PO DAILY 05/17/18 05/17/18 05/17/18 History EPINEPHrine [Epipen 2-Kishore] 0.3 mg IJ ONCE PRN #2 auto.injct 05/17/18 Unknown Rx Naproxen Sodium [Aleve] 220 mg PO DAILY 05/17/18 05/17/18 05/17/18 History predniSONE [Prednisone] 10 mg PO DAILY #42 tab.ds.pk 05/17/18 Unknown Rx Exam - Constitutional Vitals: Temp Pulse Resp BP Pulse Ox 98.9 F 75 18 123/69 100 05/17/18 13:49 05/17/18 13:49 05/17/18 14:23 05/17/18 18:00 05/17/18 18:00 Results - Labs CBC & Chem 7: 05/17/18 15:27 05/17/18 15:27 Labs: Abnormal lab results 05/17/18 05/17/18 Range/Units 15:27 15:27 Hgb 14.8 H (10.1-14.3) gm/dl Hct 45.1 H (30.3-42.9) % Seg Neutrophils % 81.9 H (40.0-70.0) % Creatinine 0.5 L (0.7-1.2) mg/dL
[2018-05-17 20:29] VITALS: BP 111/55
== END 2018-05-17 20:29 | disposition admitted as inpatient to this hospital (09) ==
LOC: ED 13:17
DX: T78.40XA Allergy, unspecified, initial encounter (principal); R06.00 Dyspnea, unspecified; R22.0 Localized swelling, mass and lump, head; I10 Essential (primary) hypertension; Z88.1 Allergy status to other antibiotic agents; Z91.010 Allergy to peanuts; Z88.0 Allergy status to penicillin; X58.XXXA Exposure to other specified factors, initial encounter
CPT/HCPCS: 36415; 71045; 80053; 84484; 85025; 93005; 93010; 96372; 96374; 96375; 96376; 99284; J0171; J1200; J2930; J7030; 96361

== ENCOUNTER 2019-03-03 10:35 | Emergency (ER) | payer MEDICAID, OTHER ==
[2019-03-03 10:50] VITALS: BP 121/85
[2019-03-03] MEDS ORDERED: MAGIC MOUTHWASH PO ONE (12:34)
[2019-03-03] MEDS ORDERED: NORCO 5/325 PO ONE (12:34)
--- NOTE | 2019-03-03 12:34 | Emergency Department Report ---
ED ENT HPI - General Chief complaint: Dental/Oral Stated complaint: CHEST PAIN/HEADACHE Time Seen by Provider: 03/03/19 11:43 Source: patient Mode of arrival: Ambulatory Limitations: No Limitations - History of Present Illness Initial comments: This is a 33-year-old -[place] female presents to the emergency room with pain for 3 days. Patient states she has been established appointment in 2 weeks the pain is so severe she can't tolerate until then. Patient states she was seen in the emergency room 6 months ago and told to follow up with a dentist but couldn't afford to. She reports a headache with symptoms. Reports pain is worse with eating. Denies drooling, difficulty swallowing, fever, or fever. MD complaint: tooth pain Onset/Timin -: days(s) Location: tooth # (14 & 19) Severity: severe Severity scale (0 -10): 10 Quality: aching, constant, other (throbbing) Consistency: constant Improves with: none Worsens with: eating Context- Dental: history of dental caries, poor dental care Associated Symptoms: gum swelling, toothache. denies: fever, cough, pain with swallowing, sore throat, tinnitus, hearing loss, discharge from ear, rhinorrhea - Related Data Home Medications Medication Instructions Recorded Confirmed Last Taken Cetirizine HCl [Zyrtec] 10 mg PO DAILY 05/17/18 05/17/18 05/17/18 Naproxen Sodium [Aleve] 220 mg PO DAILY 05/17/18 05/17/18 05/17/18 Previous Rx's Medication Instructions Recorded Last Taken Type diphenhydrAMINE [Benadryl CAP] 25 mg PO Q6H PRN #30 capsule 11/30/17 05/17/18 Rx EPINEPHrine [Epipen 2-Kishore] 0.3 mg IJ ONCE PRN #2 auto.injct 05/17/18 Unknown Rx predniSONE [predniSONE 10mg (21 10 mg PO DAILY #42 tab.ds.pk 05/17/18 Unknown Rx tabs)] Acetaminophen/Codeine [Tylenol 1 tab PO Q6H PRN #12 tab 03/03/19 Unknown Rx /Codeine # 3 tab] Naproxen [Naprosyn] 500 mg PO BID PRN #20 tablet 03/03/19 Unknown Rx cephALEXin [Keflex] 500 mg PO Q12HR #14 cap 03/03/19 Unknown Rx Allergies Allergy/AdvReac Type Severity Reaction Status Date / Time amoxicillin Allergy Hives Verified 11/25/17 07:53 clindamycin [From Cleocin] Allergy Hives Verified 11/29/17 04:46 peanut Allergy Swelling Verified 05/17/18 13:49 Penicillins Allergy Hives Verified 11/25/17 07:52 ED Dental HPI - General Chief complaint: Dental/Oral Stated complaint: CHEST PAIN/HEADACHE Time Seen by Provider: 03/03/19 11:43 Source: patient Mode of arrival: Ambulatory Limitations: No Limitations - Related Data Home Medications Medication Instructions Recorded Confirmed Last Taken Cetirizine HCl [Zyrtec] 10 mg PO DAILY 05/17/18 05/17/18 05/17/18 Naproxen Sodium [Aleve] 220 mg PO DAILY 05/17/18 05/17/18 05/17/18 Previous Rx's Medication Instructions Recorded Last Taken Type diphenhydrAMINE [Benadryl CAP] 25 mg PO Q6H PRN #30 capsule 11/30/17 05/17/18 Rx EPINEPHrine [Epipen 2-Kishore] 0.3 mg IJ ONCE PRN #2 auto.injct 05/17/18 Unknown Rx predniSONE [predniSONE 10mg (21 10 mg PO DAILY #42 tab.ds.pk 05/17/18 Unknown Rx tabs)] Acetaminophen/Codeine [Tylenol 1 tab PO Q6H PRN #12 tab 03/03/19 Unknown Rx /Codeine # 3 tab] Naproxen [Naprosyn] 500 mg PO BID PRN #20 tablet 03/03/19 Unknown Rx cephALEXin [Keflex] 500 mg PO Q12HR #14 cap 03/03/19 Unknown Rx Allergies Allergy/AdvReac Type Severity Reaction Status Date / Time amoxicillin Allergy Hives Verified 11/25/17 07:53 clindamycin [From Cleocin] Allergy Hives Verified 11/29/17 04:46 peanut Allergy Swelling Verified 05/17/18 13:49 Penicillins Allergy Hives Verified 11/25/17 07:52 ED Review of Systems ROS: Stated complaint: CHEST PAIN/HEADACHE Other details as noted in HPI Constitutional: denies: chills, fever ENT: dental pain. denies: ear pain, throat pain, congestion Respiratory: denies: cough, shortness of breath, wheezing Cardiovascular: denies: chest pain, palpitations Gastrointestinal: denies: abdominal pain, nausea, diarrhea Skin: denies: rash, lesions Neurological: headache. denies: weakness, paresthesias Psychiatric: denies: anxiety, depression ED Past Medical Hx - Past Medical History Hx Hypertension: Yes (gestational) Hx Congestive Heart Failure: No Hx Diabetes: No Hx Deep Vein Thrombosis: No Hx Renal Disease: No Hx Sickle Cell Disease: No Hx Seizures: No Hx Asthma: No Hx COPD: No - Surgical History Past Surgical History?: No - Social History Smoking Status: Never Smoker Substance Use Type: None - Medications Home Medications: Home Medications Medication Instructions Recorded Confirmed Last Taken Type diphenhydrAMINE [Benadryl CAP] 25 mg PO Q6H PRN #30 capsule 11/30/17 05/17/18 05/17/18 Rx Cetirizine HCl [Zyrtec] 10 mg PO DAILY 05/17/18 05/17/18 05/17/18 History EPINEPHrine [Epipen 2-Kishore] 0.3 mg IJ ONCE PRN #2 auto.injct 05/17/18 Unknown Rx Naproxen Sodium [Aleve] 220 mg PO DAILY 05/17/18 05/17/18 05/17/18 History predniSONE [predniSONE 10mg (21 10 mg PO DAILY #42 tab.ds.pk 05/17/18 Unknown Rx tabs)] Acetaminophen/Codeine [Tylenol 1 tab PO Q6H PRN #12 tab 03/03/19 Unknown Rx /Codeine # 3 tab] Naproxen [Naprosyn] 500 mg PO BID PRN #20 tablet 03/03/19 Unknown Rx cephALEXin [Keflex] 500 mg PO Q12HR #14 cap 03/03/19 Unknown Rx ED Physical Exam - General Limitations: No Limitations General appearance: alert, in no apparent distress - ENT ENT exam: Present: mucous membranes moist, other (#14 dark black dental caries to gum line, muccosal swelling and tenderness, #18 partial tooth with dental caries and muccosal swelling, tenderness) - Neck Neck exam: Present: normal inspection - Respiratory Respiratory exam: Present: normal lung sounds bilaterally. Absent: respiratory distress - Cardiovascular Cardiovascular Exam: Present: regular rate, normal rhythm. Absent: systolic murmur, diastolic murmur, rubs, gallop - GI/Abdominal GI/Abdominal exam: Present: soft, normal bowel sounds - Neurological Exam Neurological exam: Present: alert, oriented X3 - Psychiatric Psychiatric exam: Present: normal affect, normal mood - Skin Skin exam: Present: warm, dry, intact, normal color. Absent: rash ED Course Vital Signs 03/03/19 10:48 Temperature 98.5 F Pulse Rate 68 Respiratory 18 Rate Blood Pressure 121/85 O2 Sat by Pulse 99 Oximetry ED Medical Decision Making - Medical Decision Making Patient is stable and was examined by me. Given norco once in ER. Susceptible of dental dental caries and tooth avulsion. Start keflex, tylenol #3, and naproxen. Instructed to keep appointment with dentist in 2 weeks or try to walk-in for continued care. Discussed plan with patient. She agreed with ER plan. Discharged home stable. Critical care attestation.: If time is entered above; I have spent that time in minutes in the direct care of this critically ill patient, excluding procedure time. ED Disposition Clinical Impression: Dental caries, Toothache Tooth avulsion Qualifiers: Encounter type: initial encounter Qualified Code(s): S03.2XXA - Dislocation of tooth, initial encounter Disposition: TO HOME OR SELFCARE Is pt being admited?: No Does the pt Need Aspirin: No Condition: Stable Instructions: Dental Caries (ED), Acute dental trauma (ED), Toothache (ED) Additional Instructions: Complete full course of antibiotics. Take pain medication every 6-8 hours as needed for pain. Follow up with the dentist as planned in 2 weeks or walk-in for immediate care. Prescriptions: cephALEXin [Keflex] 500 mg PO Q12HR #14 cap Naproxen [Naprosyn] 500 mg PO BID PRN #20 tablet PRN Reason: Pain, Moderate (4-6) Acetaminophen/Codeine [Tylenol /Codeine # 3 tab] 1 tab PO Q6H PRN #12 tab PRN Reason: Pain , Severe (7-10) Referrals: NANCY SALAZAR MD [Primary Care Provider] - 3-5 Days [facility] [Outside] - 3-5 Days [facility] [Outside] - 3-5 Days [facility] [Outside] - 3-5 Days Forms: Work/School Release Form(ED) Time of Disposition: 12:41
== END 2019-03-03 13:07 | disposition home or self-care (01) ==
LOC: ED 10:35
DX: S03.2XXA Dislocation of tooth, initial encounter (principal); K02.9 Dental caries, unspecified; I10 Essential (primary) hypertension; Z88.1 Allergy status to other antibiotic agents; Z88.0 Allergy status to penicillin; Z91.010 Allergy to peanuts; X58.XXXA Exposure to other specified factors, initial encounter; Y93.89 Activity, other specified; Y92.89 Other specified places as the place of occurrence of the external cause; Y99.8 Other external cause status
CPT/HCPCS: 99282